=== PATIENT | male | born 1960 | race Caucasian/White ===

== ENCOUNTER 2019-02-19 15:22 | Inpatient (IN) | payer MEDICARE, MEDICAID ==
[~2019-02-19] VITALS: Ht 160 cm; Wt 99.6 kg
[~2019-02-19 15:22] MED LIST: ACET500C13 PO; ALLP100T PO; CEPH500C PO; CLOT30SO TP; DOXY100C42 PO; MUPI15CR10 TOP; SIMV20TA3 PO; SULF1TAB38 PO
--- NOTE | 2019-02-19 15:50 | NUR ---
Pt voided approximately 200ml in hat in bathroom.
[2019-02-19 15:53] LABS: BILIRUBIN,URINE NEGATIVE (NEGATIVE); CLARITY,URINE VERY CLOUDY; COLOR,URINE YELLOW; GLUCOSE, URINE (UA) NEGATIVE (NEGATIVE); KETONES,URINE NEGATIVE (NEGATIVE); LEUKOCYTE ESTERASE ,URINE 3+ (NEGATIVE); NITRITE,URINE POSITIVE (NEGATIVE); PH,URINE 6 (5-9); PROTEIN,URINE 1+ (NEGATIVE)
[2019-02-19] MEDS ORDERED: ALPRAZolam 0.25 MG (XANAX) TAB PO ONE (16:00)
--- NOTE | 2019-02-19 16:00 | ED General ---
General Chief Complaint: - Urinary Stated Complaint: HAD U/S DONE, BILAT HYDRONEPHROSIS Nursing Triage Note: had renal US done on saturday at [place], results were called to caregivers today stating that pt has Bilateral hydronephrosis, BRENDA, and urinary retention, and was advised by ordering physician to get to ED immediately Nursing Sepsis Screen: No Definite Risk Source of Information: Patient, Caregiver Exam Limitations: Other (Down syndrome) History of Present Illness Date Seen by Provider: Feb 19, 2019 Time Seen by Provider: 15:40 Initial Comments This 58-year-old gentleman with Down syndrome presents to the emergency room accompanied by his caregivers from [employer] [facility]. they were directed to the emergency room by his event specialist product demonstrator, Dr. Danielson from [facility] in [place]. He apparently has been struggling with urinary retention, incontinence, he has been seeing Dr. Danielson and had a workup done on Saturday which included renal ultrasound. Renal ultrasound apparently reported bilateral hydronephrosis. This report was called to patient's care providers and they were instructed to bring him to the emergency room for further evaluation and possible placement of a catheter. Patient denies any pain. Care provider state he has struggled to some degree with incontinence over the last 18 months but it has been progressively worse over the past 6 months. They now frequently have to do clothing changes sometimes 5 or 6 times a day. Allergies and Home Medications Allergies Coded Allergies: No Known Drug Allergies (Unverified , 02/05/12) Home Medications Acetaminophen 500 Mg Capsule, 500-1,000 MG PO Q6H PRN for PAIN OR FEVER, (Reported) PRN PAIN OR FEVER Allopurinol 100 Mg Tab, 100 MG PO BID, (Reported) Cephalexin Monohydrate 500 Mg Capsule, 1 EACH PO TID Prescribed by: ROCIO CAVAZOS on 10/02/13 1231 Clotrimazole 10 Ml Solution, 1 SPR TP TID PRN for ATHLETE'S FEET, (Reported) PRN (ATHLETE'S FEET) Doxycycline Monohydrate 100 Mg Capsule, 100 MG PO BID Prescribed by: ROCIO CAVAZOS on 10/02/13 1231 Mupirocin Calcium 15 Gm Cream..g., 1 APPLIC TOP BID Prescribed by: ROCIO CAVAZOS on 10/02/13 1231 Simvastatin 20 Mg Tablet, 20 MG PO HS, (Reported) Patient Home Medication List Home Medication List Reviewed: Yes Review of Systems Review of Systems Constitutional: no symptoms reported EENTM: no symptoms reported Respiratory: no symptoms reported Cardiovascular: no symptoms reported Gastrointestinal: no symptoms reported Genitourinary: see HPI Musculoskeletal: no symptoms reported Skin: no symptoms reported Psychiatric/Neurological: No Symptoms Reported Hematologic/Lymphatic: No Symptoms Reported Immunological/Allergic: no symptoms reported Past Jydwtdc-Uogbil-Lmdhjw Hx Past Med/Social Hx: Reviewed Nursing Past Med/Soc Hx Patient Social History Alcohol Use: Denies Use Recreational Drug Use: No 2nd Hand Smoke Exposure: No Recent Foreign Travel: No Contact w/Someone Who Travel: No Recent Infectious Disease Expo: No Recent Hopitalizations: No Immunizations Up To Date Tetanus Booster (TDap): Unknown Date of Pneumonia Vaccine: May 06, 2008 Seasonal Allergies Seasonal Allergies: No Past Medical History Surgeries: Yes (POSSIBLY HAD A HEART SX A CHILD FOR [employer]) Respiratory: No Cardiac: Yes (POSSIBLE DEFICIT THAT WAS FIXED) Neurological: Yes (Down Syndrome) Gastrointestinal: No Musculoskeletal: Yes Gout Endocrine: No HEENT: No Cancer: No Did You Recieve Any Treatments: No Psychosocial: No Integumentary: No Blood Disorders: No Physical Exam Vital Signs Vital Signs - First Documented 02/19/19 02/19/19 02/19/19 15:42 17:27 18:05 Temp 36.4 Pulse 68 Resp 18 B/P (MAP) 150/82 (104) Pulse Ox 97 O2 Delivery Simple Mask O2 Flow Rate 5.00 Capillary Refill : Less Than 3 Seconds Height, Weight, BMI Height: 5'5" Weight: 225lbs. oz. 102.843597os; 40.00 BMI Method:Estimated General Appearance: No Apparent Distress, WD/WN, Obese HEENT: PERRL/EOMI, Normal ENT Inspection Neck: Normal Inspection Respiratory: Lungs Clear, Normal Breath Sounds, No Accessory Muscle Use, No Respiratory Distress Cardiovascular: Regular Rate, Rhythm, No Edema Gastrointestinal: Normal Bowel Sounds, Non Tender, Soft; No Distended Extremity: Normal Inspection, No Pedal Edema Neurologic/Psychiatric: Alert, Oriented x3, No Motor/Sensory Deficits, Normal Mood/Affect, wood mechanist II-XII Norm as Tested Skin: Normal Color, Warm/Dry Procedures/Interventions Procedure: Conscious sedation for placement of Urban catheter Patient Education: Explained Benefits, Explained Risks, Pt. Ack. Understanding (Patient's guardian consented) Agreement on procedure with pt: Yes Breath Sounds per Auscultation: Clear Heart Sounds per Auscultation: Regular Airway Exam: Mouth opens >2 fingers, Neck Full Range of Motion See nursing documentation Progress/Results/Core Measures Suspected Sepsis Recent Fever Within 48 Hours: No Infection Criteria Present: None New/Unexplained Altered Menta: No Sepsis Screen: No Definite Risk SIRS Temperature: Pulse: 68 Respiratory Rate: 18 Laboratory Tests 02/19/19 16:35: White Blood Count 8.0 Blood Pressure 150 /82 Mean: 104 Laboratory Tests 02/19/19 16:35: Creatinine 2.45H, Platelet Count 274 Results/Orders Lab Results Laboratory Tests Test 02/19/19 15:46 02/19/19 16:35 Range/Units Urine Color YELLOW Urine Clarity VERY CLOUDY H Urine pH 6 5-9 Urine Specific Mclean 1.010 L 1.016-1.022 Urine Protein 1+ H NEGATIVE Urine Glucose (UA) NEGATIVE NEGATIVE Urine Ketones NEGATIVE NEGATIVE Urine Nitrite POSITIVE H NEGATIVE Urine Bilirubin NEGATIVE NEGATIVE Urine Urobilinogen NORMAL NORMAL MG/DL Urine Leukocyte Esterase 3+ H NEGATIVE Urine RBC (Auto) 2+ H NEGATIVE Urine RBC 10-25 H /HPF Urine WBC TNTC H /HPF Urine Crystals NONE /LPF Urine Bacteria LARGE H /HPF Urine Casts NONE /LPF Urine Mucus NEGATIVE /LPF Urine Culture Indicated YES White Blood Count 8.0 4.3-11.0 10^3/uL Red Blood Count 4.06 L 4.35-5.85 10^6/uL Hemoglobin 12.6 L 13.3-17.7 G/DL Hematocrit 40 40-54 % Mean Corpuscular Volume 98 80-99 FL Mean Corpuscular Hemoglobin 31 25-34 PG Mean Corpuscular Hemoglobin Concent 32 32-36 G/DL Red Cell Distribution Width 16.0 H 10.0-14.5 % Platelet Count 274 130-400 10^3/uL Mean Platelet Volume 9.3 7.4-10.4 FL Neutrophils (%) (Auto) 59 42-75 % Lymphocytes (%) (Auto) 26 12-44 % Monocytes (%) (Auto) 13 H 0-12 % Eosinophils (%) (Auto) 2 0-10 % Basophils (%) (Auto) 1 0-10 % Neutrophils # (Auto) 4.7 1.8-7.8 X 10^3 Lymphocytes # (Auto) 2.1 1.0-4.0 X 10^3 Monocytes # (Auto) 1.0 0.0-1.0 X 10^3 Eosinophils # (Auto) 0.1 0.0-0.3 10^3/uL Basophils # (Auto) 0.1 0.0-0.1 10^3/uL Sodium Level 138 135-145 MMOL/L Potassium Level 4.8 3.6-5.0 MMOL/L Chloride Level 107 98-107 MMOL/L Carbon Dioxide Level 22 21-32 MMOL/L Anion Gap 9 5-14 MMOL/L Blood Urea Nitrogen 41 H 7-18 MG/DL Creatinine 2.45 H 0.60-1.30 MG/DL Estimat Glomerular Filtration Rate 27 BUN/Creatinine Ratio 17 Glucose Level 104 70-105 MG/DL Calcium Level 8.4 L 8.5-10.1 MG/DL My Orders Orders - SUNSHINE MITCHELL MD Ed Iv/Invasive Line Start (02/19/19 15:50) Alprazolam Tablet (Xanax Tablet) (02/19/19 16:00) Ceftriaxone For Iv Use (Rocephin For I (02/19/19 16:15) Lidocaine 2% (Urojet) (Xylocaine Urojet) (02/19/19 16:15) Midazolam Injection (Versed Injection) (02/19/19 16:45) Fentanyl Injection (Sublimaze Injection (02/19/19 16:45) Medications Given in ED Current Medications Medications Dose Ordered Sig/Casey Route Start Time Stop Time Status Last Admin Dose Admin Alprazolam 0.5 mg ONCE ONCE PO 02/19/19 16:00 02/19/19 16:01 DC 02/19/19 15:56 0.5 MG Ceftriaxone Sodium 1000 mg/ Sterile Water 10 ml @ 200 mls/hr ONCE ONCE IV 02/19/19 16:15 02/19/19 16:17 DC 02/19/19 17:56 200 MLS/HR Lidocaine HCl 10 ml ONCE ONCE TOP 02/19/19 16:15 02/19/19 16:16 DC 02/19/19 17:16 10 ML Vital Signs/I&O 10/17/19 10/17/19 10/17/19 15:42 17:27 18:05 Temp 36.4 36.4 Pulse 68 59 Resp 18 18 B/P (MAP) 150/82 (104) 114/68 (104) Pulse Ox 97 O2 Delivery Simple Mask Room Air O2 Flow Rate 5.00 5.00 Capillary Refill : Less Than 3 Seconds Blood Pressure Mean: 104 Progress Note #1: Time: 16:00 Progress Note Patient voided approximately 200 mL of cloudy and foul-smelling urine. Postvoid bladder scan showed 500+ mL of retained urine. The plan at this time is to provide some mild sedation with Xanax 0.[address] an IV and a Urban catheter. Progress Note #2: Time: 16:16 Progress Note Patient has a significant urinary tract infection based on urinalysis. Rocephin 1 g IV has been added to the orders. Progress Note #3: Time: 16:23 Progress Note I spoke with Dr. Danielson's nursing staff. Patient reportedly had a bladder volume of 1300 mL with a post void residual of 700 at his visit on February 17. He had severe bilateral hydronephrosis. His staff is faxing the labs and ultrasound report along with the most recent office note to the ER. Progress Note #4: Time: 18:29 Progress Note Paperwork from the nephrology office was never received. Patient's creatinine was 2.45. This is an increase from 2.3 from old lab work performed in January. Urban catheter was placed under conscious sedation with Versed 2 mg and fentanyl 50 g. Urojet was also used. Patient tolerated the procedure well. Nearly 1000 mL of urine output was obtained. Patient is receiving Rocephin for treatment of urinary tract infection. Case was discussed with Dr. Dang who would like to patient admitted for observation overnight. Case was also discussed with Dr. Monahan who recommended starting Flomax and Urecholine. See admission orders. Patient's brother who is a coguardian with patient's mother was present and signed consent for the conscious sedation. We discussed CODE STATUS. For now he would like him to remain a full code until he can discuss more with family. Departure Communication (Admissions) Time/Spoke to Admitting Phy: 17:30 Dr. Dang Time/Spoke to Consulting Phy: 17:40 Dr. Monahan Impression Primary Impression: Urinary obstruction Additional Impressions: Urinary tract infection Qualified Codes: N39.0 - Urinary tract infection, site not specified Down syndrome Disposition: ADMITTED INPATIENT Condition: Improved Admissions Decision to Admit Reason: Admit from ER (General) Decision to Admit/Date: Feb 19, 2019 Time/Decision to Admit Time: 17:30 Departure-Patient Inst. Referrals: NATY DANG DO (PCP/Family) Primary Care Physician Copy Copies To 1: NATY DANG DO Copies To 2: DANIELA MONAHAN MD, JOSHUA T MD Feb 19, 2019 16:00
[2019-02-19 16:03] LABS: BACTERIA,URINE LARGE /HPF; WBC,URINE TNTC /HPF
[2019-02-19] MEDS ORDERED: LIDOCAINE UROJET 2% GEL 10 ML PKG TOP ONE (16:15)
[2019-02-19] MEDS ORDERED: cefTRIAXone FOR IV USE 1,000 MG in WATER (STERILE) FOR INJECTION 10 ML IV ONE (16:15)
[2019-02-19 16:42] LABS: BASOPHILS # (AUTO) 0.1 10^3/uL (0.0-0.1); BASOPHILS % (AUTO) 1 % (0-10); EOSINOPHILS # (AUTO) 0.1 10^3/uL (0.0-0.3); EOSINOPHILS % (AUTO) 2 % (0-10); HEMATOCRIT 40 % (40-54); HEMOGLOBIN 12.6 G/DL (13.3-17.7); LYMPHOCYTES # (AUTO) 2.1 X 10^3 (1.0-4.0); LYMPHOCYTES % (AUTO) 26 % (12-44); MEAN CORPUSCULAR HEMOGLOBIN 31 PG (25-34); MEAN CORPUSCULAR HGB CONC 32 G/DL (32-36); MEAN CORPUSCULAR VOLUME 98 FL (80-99); MEAN PLATELET VOLUME 9.3 FL (7.4-10.4); MONOCYTES % (AUTO) 13 % (0-12); NEUTROPHILS # (AUTO) 4.7 X 10^3 (1.8-7.8); NEUTROPHILS % (AUTO) 59 % (42-75); PLATELET COUNT 274 10^3/uL (130-400)
[2019-02-19] MEDS ORDERED: fentaNYL INJECTION 100 MCG/2 ML AMP IVP ONE (16:45)
[2019-02-19] MEDS ORDERED: MIDAZOLAM 2 MG/2 ML (VERSED) VIAL IVP ONE (16:45)
[2019-02-19 17:00] LABS: CALCIUM 8.4 MG/DL (8.5-10.1); CREATININE SERUM 2.45 MG/DL (0.60-1.30); POTASSIUM 4.8 MMOL/L (3.6-5.0)
--- NOTE | 2019-02-19 17:46 | NUR ---
900 ml urine drained from bender bag at this time
--- NOTE | 2019-02-19 18:10 | NUR ---
This nurse, Dr. Hyman, med student, Romelia and Glenna from [facility], 2 caseworkers and pt's brother present at time of conscious sedation. 1708 pt placed on 2 L nc by [facility] 1708 versed 1mg administered 1712 fentanyl 50mcg 1716 urojet administered by med student 1715 pt placed on mask with 5 L nc 1717 versed 1 mg administered 1719 pt sleeping 1722 16 fr bender inserted by med student 1728 procedure complete 1744 pt awake and sitting up in bed
--- NOTE | 2019-02-19 18:20 | NUR ---
DELLA RODRIGUEZ admitted to room 411-1, with an admitting diagnosis of URINARY TRACT INFECTION AND URINARY OBSTRUCTION, on 02/19/19 from ED via BED, accompanied by ED STAFF AND FAMILY. DELLA RODRIGUEZ introduced to surroundings, call light, bed controls, phone, TV, temperature control, lights, meal times, smoking policy, visitor policy, side rail policy, bathrooms and showers. Patient Rights given to patient in the handbook. DELLA RODRIGUEZ verbalizes understanding that [facility] is not responsible for the loss or damage to any personal effects or valuables that are kept in the patients possession during their hospitalization. The following Patient Care Plans were discussed with the PATIENT'S FAMILY AND CARE WORKERS: Discharge Planning, URINARY RETENTION, URINARY TRACT INFECTION and KNOWLEDGE DEFICIT. DELLA RODRIGUEZ verbalizes understanding of Interdisciplinary Patient Education. Patient and/or family were informed about the Rapid Response Team and its purpose.
[2019-02-19 18:26] VITALS: BP 133/81
[2019-02-19] MEDS ORDERED: ONDANSETRON 4 MG/2 ML (SDV) Z0FRAN IV PRN (19:00)
[2019-02-19] MEDS ORDERED: CATHETER FLUSH 10 ML SYR IV PRN (19:00)
[2019-02-19] MEDS: BETHANECHOL 10 MG (URECHOLINE) TAB PO SCH (20:06)
[2019-02-19] MEDS: NS IV 1000 ML 1,000 ML IV SCH (20:06)
[2019-02-19] MEDS: TAMSULOSIN 0.4 MG (FLOMAX) CAP PO SCH (20:06)
[2019-02-19 20:33] VITALS: BP 162/78
[2019-02-19] MEDS: ALPRAZolam 0.25 MG (XANAX) TAB PO PRN (21:38)
[2019-02-19] MEDS: LORazepam INJ 2 MG/ML (ATIVAN) VIAL IV PRN (22:46)
[2019-02-19 23:12] VITALS: BP 144/76
[2019-02-20 04:08] VITALS: BP 124/71
[2019-02-20 04:20] LABS: BASOPHILS # (AUTO) 0.1 10^3/uL (0.0-0.1); BASOPHILS % (AUTO) 1 % (0-10); EOSINOPHILS # (AUTO) 0.1 10^3/uL (0.0-0.3); EOSINOPHILS % (AUTO) 1 % (0-10); HEMATOCRIT 44 % (40-54); HEMOGLOBIN 14.2 G/DL (13.3-17.7); LYMPHOCYTES # (AUTO) 2.9 X 10^3 (1.0-4.0); LYMPHOCYTES % (AUTO) 22 % (12-44); MEAN CORPUSCULAR HEMOGLOBIN 32 PG (25-34); MEAN CORPUSCULAR HGB CONC 32 G/DL (32-36); MEAN CORPUSCULAR VOLUME 98 FL (80-99); MEAN PLATELET VOLUME 9.7 FL (7.4-10.4); MONOCYTES # (AUTO) 1.4 X 10^3 (0.0-1.0); MONOCYTES % (AUTO) 11 % (0-12); NEUTROPHILS # (AUTO) 8.7 X 10^3 (1.8-7.8); NEUTROPHILS % (AUTO) 66 % (42-75); PLATELET COUNT 294 10^3/uL (130-400); RED CELL DISTRIBUTION WIDTH 16.1 % (10.0-14.5); WHITE BLOOD COUNT 13.2 10^3/uL (4.3-11.0)
[2019-02-20 04:34] LABS: CALCIUM 9.2 MG/DL (8.5-10.1); CREATININE SERUM 2.55 MG/DL (0.60-1.30)
[2019-02-20] MEDS: NS IV 1000 ML 1,000 ML IV SCH ×2 (05:42→15:30)
[2019-02-20] MEDS: BETHANECHOL 10 MG (URECHOLINE) TAB PO SCH (06:47)
[2019-02-20 08:00] VITALS: BP_SYST 109; BP_SYST 116; BP_DIAS 59; BP_DIAS 66
--- NOTE | 2019-02-20 08:05 | History & Physical ---
History of Present Illness History of Present Illness Reason for visit/HPI Patient has Down syndrome's and MR. Patient has renal insufficiency. Renal specialist at [place]. Renal ultrasound showing urinary obstruction, bilateral hydronephrosis and urinary retention. Nursing Home Director was told to bring to the emergency room at [facility]. Urban catheter. Put in Date of Admission Feb 19, 2019 at 17:51 Time Seen by a Provider: 08:01 I consulted on this patient on 02/20/19 08:01 Attending Physician Chandra Dang DO Admitting Physician Chandra Dang DO Consult Allergies and Home Medications Allergies Coded Allergies: No Known Drug Allergies (Unverified , 02/05/12) Home Medications Acetaminophen 500 Mg Capsule, 500-1,000 MG PO Q6H PRN for PAIN OR FEVER, (Reported) PRN PAIN OR FEVER Allopurinol 100 Mg Tab, 100 MG PO BID, (Reported) Cephalexin Monohydrate 500 Mg Capsule, 1 EACH PO TID Prescribed by: ROCIO CAVAZOS on 10/02/13 1231 Clotrimazole 10 Ml Solution, 1 SPR TP TID PRN for ATHLETE'S FEET, (Reported) PRN (ATHLETE'S FEET) Doxycycline Monohydrate 100 Mg Capsule, 100 MG PO BID Prescribed by: ROCIO CAVAZOS on 10/02/13 1231 Mupirocin Calcium 15 Gm Cream..g., 1 APPLIC TOP BID Prescribed by: ROCIO CAVAZOS on 10/02/13 1231 Simvastatin 20 Mg Tablet, 20 MG PO HS, (Reported) Patient Home Medication List Home Medication List Reviewed: No Past Hovtsio-Mgljyx-Ddejyz Hx Past Med/Social Hx: Reviewed Nursing Past Med/Soc Hx Patient Social History Marrital Status: single Employed/Student: unemployed Alcohol Use: Denies Use Recreational Drug Use: No 2nd Hand Smoke Exposure: No Physical Abuse Screen: No Sexual Abuse: No Recent Foreign Travel: No Contact w/other who traveled: No Recent Hopitalizations: No Recent Infectious Disease Expo: No Immunizations Up To Date Tetanus Booster (TDap): Unknown Date of Pneumonia Vaccine: May 06, 2008 Date of Influenza Vaccine: Feb 03, 2019 Seasonal Allergies Seasonal Allergies: No Past Medical History Currently Using CPAP: No Currently Using BIPAP: No Musculoskeletal: Gout Did You Recieve Any Treatments: No History of Blood Disorders: No Family History Cardiovascular disease 19 FATHER Hypertension G8 BROTHER Neoplasm maternal grandmother (some kind of cancer) Review of Systems Constitutional: no symptoms reported EENTM: no symptoms reported Respiratory: no symptoms reported Cardiovascular: no symptoms reported Gastrointestinal: no symptoms reported Genitourinary: decreased output, hesitancy, incontinence Physical Exam Vital Signs Vital Signs - First Documented 02/19/19 02/19/19 02/19/19 15:42 17:27 18:05 Temp 36.4 Pulse 68 Resp 18 B/P (MAP) 150/82 (104) Pulse Ox 97 O2 Delivery Simple Mask O2 Flow Rate 5.00 Capillary Refill : Less Than 3 Seconds Height, Weight, BMI Height: 5'5" Weight: 225lbs. oz. 102.920886hc; 38.90 BMI Method:Estimated General Appearance: No Apparent Distress, WD/WN Eyes: Bilateral Eye Normal Inspection HEENT: Normal ENT Inspection Neck: Normal Inspection, Non Tender Respiratory: Lungs Clear, No Accessory Muscle Use, No Respiratory Distress Cardiovascular: Regular Rate, Rhythm Gastrointestinal: Non Tender Assessment/Plan Assessment and Plan Urinary obstruction. Renal insufficiency. Bilateral hydronephrosis. UTI. Down syndrome's. MR Admission Diagnosis Admission Status: Observation Clinical Quality Measures DVT/VTE Risk/Contraindication: Risk Factor Score Per Nursin RFS Level Per Nursing on Admit: 2=Moderate CHANDRA DANG DO Feb 20, 2019 08:04
[2019-02-20] MEDS ORDERED: ACET-168 PO (08:54)
[2019-02-20] MEDS ORDERED: CLOT15CR6 TOP (08:54)
[2019-02-20] MEDS ORDERED: SIMV20TA3 PO (08:54)
--- NOTE | 2019-02-20 08:55 | NUR ---
UPDATED MED REC WITH MEDICATION LIST ON CHART FROM [facility]
[2019-02-20] MEDS: HYDROcodone/APAP 5 MG/325 MG (LORTAB) TAB PO SCH ×3 (09:04→21:39)
[2019-02-20 09:17] LABS: BILIRUBIN,URINE NEGATIVE (NEGATIVE); CLARITY,URINE BLOODY; COLOR,URINE RED; GLUCOSE, URINE (UA) NEGATIVE (NEGATIVE); KETONES,URINE 1+ (NEGATIVE); LEUKOCYTE ESTERASE ,URINE NEGATIVE (NEGATIVE); NITRITE,URINE NEGATIVE (NEGATIVE); PH,URINE 8 (5-9); PROTEIN,URINE 4+ (NEGATIVE)
[2019-02-20 09:51] LABS: BACTERIA,URINE MODERATE /HPF; RBC,URINE TNTC /HPF; WBC,URINE >100 /HPF
[2019-02-20 12:00] VITALS: BP 132/87
--- NOTE | 2019-02-20 12:36 | CONSULTATION REPORT ---
DATE OF SERVICE: 02/20/2019 ATTENDING PRIMARY CARE PHYSICIAN: Chandra Archer DO SUMMARY: This is a 58-year-old man with Down syndrome who presented to the emergency room and urinary retention and see Dr. Danielson, the towboat pilot at [place]. A renal ultrasound revealed bilateral hydronephrosis, and enlarged bladder. He is having retention with overflow. There is no known drug allergies. On allopurinol and simvastatin. A poor historian, most of the information obtained from the records. Urban catheter was inserted in the emergency room with recovery of over a liter of urine. Positive urinalysis. Culture pending. Dr. Hyman talked to me and I told them to start him on Flomax 0.4 mg daily and Urecholine 10 mg q.i.d. before meals and at bedtime. He tolerated the Urecholine well with no side effect. IMPRESSION: Neurogenic bladder with retention, bilateral hydronephrosis and renal insufficiency. RECOMMENDATIONS: I expected the gross hematuria as a subsequent effect of draining a PEG bladder. We will just watch that and push fluids orally and IV vu. Continue IV antibiotics, daily labs, watch for postobstructive diuresis and electrolytes depletion, especially potassium and replace losses accordingly. I will increase his Urecholine today to 25 q.i.d. before meals and at bedtime. Later on may be by Saturday or so we will attempt trial of voiding. Thus patient usually did not recover from retention and end up having a suprapubic tube placed in, but we will exhaust all medical ways first. Plan was fully explained to the to the worker and the nursing staff. Job ID: [id number] DocumentID: [id number] Dictated Date: 02/20/2019 09:40:42 Freelance Graphic Designer Date: 02/20/2019 12:35:38 Dictated By: DANIELA MONAHAN MD
[2019-02-20] MEDS: BETHANECHOL 25 MG (URECHOLINE) TAB PO SCH ×3 (12:59→21:35)
[2019-02-20 15:33] VITALS: BP 145/85
[2019-02-20] MEDS: TAMSULOSIN 0.4 MG (FLOMAX) CAP PO SCH (17:48)
[2019-02-20] MEDS ORDERED: cefTRIAXone 1,000 MG/SWFI 10 ML IV PUSH IV SCH ×2 (18:00)
[2019-02-20 19:43] VITALS: BP 149/82
[2019-02-20 23:58] VITALS: BP 136/78
[2019-02-21] MEDS: ALPRAZolam 0.25 MG (XANAX) TAB PO PRN (01:15)
[2019-02-21] MEDS: NS IV 1000 ML 1,000 ML IV SCH (01:24)
--- NOTE | 2019-02-21 02:00 | NUR ---
at 0100 cath leaking, pt c/o need to pee and getting agitated, Xanax given and bender hand irrigated for 45 minutes. multiple small to medium clots removed. pt very upset and cussing and requesting to go home. Ativan given IV. bladder scan done and no urine in the bladder. pt stopped yelling about having to go pee and covered up his body.
[2019-02-21] MEDS: LORazepam INJ 2 MG/ML (ATIVAN) VIAL IV PRN (02:05)
[2019-02-21 04:50] VITALS: BP 132/83
[2019-02-21] MEDS: BETHANECHOL 25 MG (URECHOLINE) TAB PO SCH ×4 (06:00→20:36)
[2019-02-21 06:09] LABS: HEMOGLOBIN 13.2 G/DL (13.3-17.7); RED CELL DISTRIBUTION WIDTH 16.2 % (10.0-14.5); WHITE BLOOD COUNT 13.7 10^3/uL (4.3-11.0)
[2019-02-21 06:22] LABS: CALCIUM 8.7 MG/DL (8.5-10.1); CREATININE SERUM 3.03 MG/DL (0.60-1.30)
[2019-02-21] MEDS ORDERED: D5W 500 ML IV SOLUTION 500 ML IV ONE (07:15)
[2019-02-21 08:00] VITALS: BP 116/76
[2019-02-21] MEDS: HYDROcodone/APAP 5 MG/325 MG (LORTAB) TAB PO SCH ×3 (08:35→20:36)
[2019-02-21 14:00] VITALS: BP 174/72
--- NOTE | 2019-02-21 16:13 | Progress Note - Hospitalist ---
Subjective HPI/CC On Admission Date Seen by Provider: Feb 21, 2019 Time Seen by Provider: 09:20 urinary retention Subjective/Events-last exam He she is asleep but easily aroused. He denies any pain complaints. He is not conversant. Objective Exam Vital Signs Vital Signs Date Time Temp Pulse Resp B/P (MAP) Pulse Ox O2 Delivery O2 Flow Rate FiO2 02/21/19 14:00 36.6 82 22 174/72 (106) 94 Room Air 02/21/19 08:00 0.00 Capillary Refill : Less Than 3 SecondsLess Than 3 Seconds General Appearance: No Apparent Distress, WD/WN, Obese Respiratory: Chest Non Tender, Lungs Clear Cardiovascular: Regular Rate, Rhythm, No Edema, No Murmur Gastrointestinal: Normal Bowel Sounds, Non Tender, Soft Extremity: Normal Inspection, Non Tender, No Pedal Edema Neurologic/Psychiatric: Alert Skin: Normal Color, Warm/Dry Results/Procedures Lab Laboratory Tests 02/21/19 05:27 Patient resulted labs reviewed. Assessment/Plan Assessment and Plan Assess & Plan/Chief Complaint Urinary tract infection Urinary retention Acute kidney injury Continue ceftriaxone Urban in place Urology following creatinine increased today increase IV fluids Repeat BMP this afternoon Diagnosis/Problems Diagnosis/Problems (1) Urinary tract infection Status: Acute Qualifiers: Urinary tract infection type: site unspecified Hematuria presence: without hematuria Qualified Codes: N39.0 - Urinary tract infection, site not specified (2) Urinary obstruction Status: Acute (3) Acute kidney injury Status: Acute Clinical Quality Measures DVT/VTE Risk/Contraindication: Risk Factor Score Per Nursin RFS Level Per Nursing on Admit: 2=Moderate Contraindications-Pharm: Other *list below* PREETI KRUEGER MD Feb 21, 2019 16:13
[2019-02-21] MEDS ORDERED: ENOXAPARIN 40 MG/0.4 ML (LOVENOX) SYR SC SCH (16:15)
[2019-02-21] MEDS: D5 1/2 NS 1000 ML IV SOLUTION 1,000 ML IV SCH ×3 (16:38→23:44)
[2019-02-21] MEDS: cefTRIAXone FOR IV USE 2,000 MG in WATER (STERILE) FOR INJECTION 10 ML IV SCH (17:43)
[2019-02-21] MEDS: TAMSULOSIN 0.4 MG (FLOMAX) CAP PO SCH (17:44)
[2019-02-21 19:11] LABS: CALCIUM 8.2 MG/DL (8.5-10.1); POTASSIUM 5.2 MMOL/L (3.6-5.0)
[2019-02-21 19:45] LABS: CREATININE SERUM 3.64 MG/DL (0.60-1.30)
[2019-02-21 22:00] VITALS: BP 171/82
[2019-02-21] MEDS ORDERED: NS IV 1000 ML 1,000 ML IV SCH (22:00)
[2019-02-22] MEDS: D5 1/2 NS 1000 ML IV SOLUTION 1,000 ML IV SCH ×3 (02:43→20:00)
[2019-02-22] MEDS: ALPRAZolam 0.25 MG (XANAX) TAB PO PRN ×2 (04:36→21:13)
[2019-02-22] MEDS: BETHANECHOL 25 MG (URECHOLINE) TAB PO SCH ×4 (04:57→21:13)
[2019-02-22 05:35] VITALS: BP 166/71
[2019-02-22 06:30] LABS: BASOPHILS # (AUTO) 0.1 10^3/uL (0.0-0.1); BASOPHILS % (AUTO) 0 % (0-10); EOSINOPHILS # (AUTO) 0.3 10^3/uL (0.0-0.3); EOSINOPHILS % (AUTO) 3 % (0-10); HEMATOCRIT 35 % (40-54); HEMOGLOBIN 11.2 G/DL (13.3-17.7); LYMPHOCYTES % (AUTO) 17 % (12-44); MEAN CORPUSCULAR HEMOGLOBIN 32 PG (25-34); MEAN CORPUSCULAR HGB CONC 32 G/DL (32-36); MEAN CORPUSCULAR VOLUME 101 FL (80-99); MEAN PLATELET VOLUME 9.8 FL (7.4-10.4); MONOCYTES # (AUTO) 1.4 X 10^3 (0.0-1.0); MONOCYTES % (AUTO) 12 % (0-12); NEUTROPHILS # (AUTO) 7.9 X 10^3 (1.8-7.8); NEUTROPHILS % (AUTO) 68 % (42-75); PLATELET COUNT 214 10^3/uL (130-400); RED CELL DISTRIBUTION WIDTH 16.6 % (10.0-14.5); WHITE BLOOD COUNT 11.6 10^3/uL (4.3-11.0)
[2019-02-22 06:47] LABS: CALCIUM 7.8 MG/DL (8.5-10.1); CREATININE SERUM 4.06 MG/DL (0.60-1.30); POTASSIUM 4.9 MMOL/L (3.6-5.0)
[2019-02-22] MEDS: HYDROcodone/APAP 5 MG/325 MG (LORTAB) TAB PO SCH (08:44)
--- NOTE | 2019-02-22 13:01 | Progress Note - Hospitalist ---
Subjective HPI/CC On Admission Date Seen by Provider: Feb 22, 2019 Time Seen by Provider: 11:20 urinary retention Subjective/Events-last exam He is awake, but not cooperative today. He denies pain. He is asking for a cup on the counter, although he has a cup of water on his tray table. Objective Exam Vital Signs Vital Signs Date Time Temp Pulse Resp B/P (MAP) Pulse Ox O2 Delivery O2 Flow Rate FiO2 02/22/19 08:00 92 Room Air 0.00 02/22/19 05:35 37.1 80 20 166/71 (102) Capillary Refill : Less Than 3 SecondsNONE General Appearance: No Apparent Distress, WD/WN, Obese Respiratory: Lungs Clear, Normal Breath Sounds, No Respiratory Distress Cardiovascular: Regular Rate, Rhythm, No Edema, No Murmur Gastrointestinal: Normal Bowel Sounds, Non Tender, Soft Extremity: Normal Inspection, Non Tender, No Pedal Edema Neurologic/Psychiatric: Alert Skin: Normal Color, Warm/Dry Results/Procedures Lab Laboratory Tests 02/21/19 18:51 02/22/19 05:45 Patient resulted labs reviewed. Assessment/Plan Assessment and Plan Assess & Plan/Chief Complaint Urinary tract infection due to Escherichia coli Urinary retention Acute kidney injury Non-anion gap metabolic acidosis Urine culture revealed Escherichia coli sensitive to ceftriaxone Continue ceftriaxone Urban in place Urology following creatinine trending upward Continue IV fluids Begin sodium bicarbonate replacement May require transfer to a facility with nephrology capability Cognitive impairment Appears to be a baseline DVT prophylaxis: Heparin Diagnosis/Problems Diagnosis/Problems (1) Urinary tract infection Status: Acute Qualifiers: Urinary tract infection type: site unspecified Hematuria presence: without hematuria Qualified Codes: N39.0 - Urinary tract infection, site not specified (2) Urinary obstruction Status: Acute (3) Acute kidney injury Status: Acute (4) Down syndrome Status: Chronic Clinical Quality Measures DVT/VTE Risk/Contraindication: Risk Factor Score Per Nursin RFS Level Per Nursing on Admit: 2=Moderate Contraindications-Pharm: Other *list below* PREETI KRUEGER MD Feb 22, 2019 13:01
[2019-02-22 13:54] LABS: ALBUMIN 2.9 GM/DL (3.2-4.5); BILIRUBIN,DIRECT 0.2 MG/DL (0.0-0.3); BILIRUBIN,INDIRECT 0.1 MG/DL; BILIRUBIN,TOTAL 0.3 MG/DL (0.1-1.0)
[2019-02-22 14:09] VITALS: BP 128/81
[2019-02-22] MEDS: SODIUM BICARBONATE 650 MG TABLET (NON-FORMULARY) PO SCH (15:56)
[2019-02-22] MEDS: TAMSULOSIN 0.4 MG (FLOMAX) CAP PO SCH (17:17)
[2019-02-22] MEDS: cefTRIAXone FOR IV USE 2,000 MG in WATER (STERILE) FOR INJECTION 10 ML IV SCH (17:19)
[2019-02-22 21:34] VITALS: BP 119/68
--- NOTE | 2019-02-22 22:00 | NUR ---
2113-pt visitors (brother & other family) left-pt crying & yelling out-prn xanax 0.25 mg given 200-pt sitting in bed, watching tv, does not appear to be in any distress at this time.
[2019-02-23] MEDS: D5 1/2 NS 1000 ML IV SOLUTION 1,000 ML IV SCH ×2 (04:11→15:15)
[2019-02-23 06:10] LABS: BASOPHILS # (AUTO) 0.1 10^3/uL (0.0-0.1); BASOPHILS % (AUTO) 1 % (0-10); EOSINOPHILS # (AUTO) 0.3 10^3/uL (0.0-0.3); EOSINOPHILS % (AUTO) 3 % (0-10); HEMATOCRIT 34 % (40-54); LYMPHOCYTES # (AUTO) 2.2 X 10^3 (1.0-4.0); LYMPHOCYTES % (AUTO) 19 % (12-44); MEAN CORPUSCULAR HEMOGLOBIN 32 PG (25-34); MEAN CORPUSCULAR HGB CONC 32 G/DL (32-36); MEAN CORPUSCULAR VOLUME 101 FL (80-99); MEAN PLATELET VOLUME 9.6 FL (7.4-10.4); MONOCYTES # (AUTO) 1.4 X 10^3 (0.0-1.0); MONOCYTES % (AUTO) 12 % (0-12); NEUTROPHILS # (AUTO) 7.9 X 10^3 (1.8-7.8); NEUTROPHILS % (AUTO) 67 % (42-75); PLATELET COUNT 210 10^3/uL (130-400); RED CELL DISTRIBUTION WIDTH 16.2 % (10.0-14.5); WHITE BLOOD COUNT 11.9 10^3/uL (4.3-11.0)
[2019-02-23 06:22] VITALS: BP 142/66
[2019-02-23 06:27] LABS: CALCIUM 7.9 MG/DL (8.5-10.1); CREATININE SERUM 4.8 MG/DL (0.60-1.30)
[2019-02-23] MEDS: BETHANECHOL 25 MG (URECHOLINE) TAB PO SCH ×4 (06:33→20:39)
[2019-02-23] MEDS: SODIUM BICARBONATE 650 MG TABLET (NON-FORMULARY) PO SCH ×3 (06:33→17:31)
--- NOTE | 2019-02-23 07:50 | NUR ---
during the duration of this rn's shift-heparin injections administered by jessica nolan rn as pt would not allow this rn to do so, but allowed jessica to do so.
--- NOTE | 2019-02-23 08:14 | Progress Note ---
Subjective Time Seen by a Provider: 08:12 Subjective/Events-last exam UTI sensitive to Rocephin. Patient's kidney function slightly worse GFR 13. Urinary obstruction. Down syndrome Objective Exam Vital Signs Date Time Temp Pulse Resp B/P (MAP) Pulse Ox O2 Delivery O2 Flow Rate FiO2 02/23/19 06:22 36.9 84 20 142/66 (91) 94 Room Air 02/22/19 21:34 37.3 84 22 119/68 (85) 93 Room Air 02/22/19 20:00 Room Air 02/22/19 14:09 37.4 80 20 128/81 (97) 94 Room Air I & O 02/23/19 07:00 Intake Total 4260 ml Output Total 3375 ml Balance 885 ml Capillary Refill : Less Than 3 SecondsNONE General Appearance: No Apparent Distress, WD/WN HEENT: Normal ENT Inspection Neck: Full Range of Motion, Normal Inspection Respiratory: Lungs Clear, No Accessory Muscle Use, No Respiratory Distress, Decreased Breath Sounds Cardiovascular: Regular Rate, Rhythm, No Murmur Gastrointestinal: non tender, soft Results Lab Laboratory Tests 02/23/19 06:05 Laboratory Tests 02/22/19 09:30: Urine Protein 335H, Urine Osmolality 235L, Urine Random Total Protein 335H, Urine Random Sodium 42, Urine Creatinine 56, Urine Protein/Creatinine Ratio 5.98 02/23/19 06:05: White Blood Count 11.9H, Red Blood Count 3.40L, Hemoglobin 11.0L, Hematocrit 34L , Mean Corpuscular Volume 101H, Mean Corpuscular Hemoglobin 32, Mean Corpuscular Hemoglobin Concent 32, Red Cell Distribution Width 16.2H, Platelet Count 210, Mean Platelet Volume 9.6, Neutrophils (%) (Auto) 67, Lymphocytes (%) (Auto) 19, Monocytes (%) (Auto) 12, Eosinophils (%) (Auto) 3, Basophils (%) (Auto) 1, Neutrophils # (Auto) 7.9H, Lymphocytes # (Auto) 2.2, Monocytes # (Auto) 1.4H, Eosinophils # (Auto) 0.3, Basophils # (Auto) 0.1, Sodium Level 139, Potassium Level 5.0, Chloride Level 112H, Carbon Dioxide Level 17L, Anion Gap 10, Blood Urea Nitrogen 45H, Creatinine 4.80#H, Estimat Glomerular Filtration Rate 13, BUN/Creatinine Ratio 9, Glucose Level 130H, Calcium Level 7.9L Microbiology 02/19/19 Urine Culture - Final, Complete Escherichia coli Assessment/Plan Assessment/Plan Assess & Plan/Chief Complaint UTI. Acute renal failure. Urinary obstruction. Down syndrome. Clinical Quality Measures Admission Status Admission Dx Urinary obstruction. Renal insufficiency. Bilateral hydronephrosis. UTI. Down syndrome's. MR DVT/VTE Risk/Contraindication: Risk Factor Score Per Nursin RFS Level Per Nursing on Admit: 2=Moderate Contraindications-Pharm: Other *list below* NATY DANG DO Feb 23, 2019 08:14
--- NOTE | 2019-02-23 09:34 | Progress Note - Urology ---
Progress Note-Urology Progress Notes/Assess & Plan Progress/Assessment & Plan LOOKING GOOD. URINE CLEAR. US SHOWS BILATERAL HYDRO. UNABLE TO VISUALIZE URETERS. WE WILL ORDER NON CONTRAST CT A/P Final Diagnosis URINE RETENTION WITH HYDRONEPHROSIS AND RENAL FAILURE DANIELA MONAHAN MD Feb 23, 2019 09:34
--- NOTE | 2019-02-23 09:43 | Diagnostic Imaging Report ---
PROCEDURE: US Renal Bilateral. TECHNIQUE: Multiple Real-time grayscale images were obtained over the kidneys in various projections bilaterally. INDICATION: Urinary obstruction, urinary tract infections. FINDINGS: The right kidney measures 13.6 x 6.2 x 6.3 cm and the left kidney measures 13.9 x 7.2 x 5.9 cm. Both kidneys demonstrate severe hydronephrosis. No calculi are seen. The bladder is decompressed by a Urban catheter. IMPRESSION: Severe bilateral hydronephrosis, etiology indeterminate. Dictated by: Dictated on workstation # [id number]
--- NOTE | 2019-02-23 11:01 | Diagnostic Imaging Report ---
PROCEDURE: CT abdomen and pelvis without contrast. TECHNIQUE: Multiple contiguous axial images were obtained through the abdomen and pelvis without the use of intravenous contrast. Auto Exposure Controls were utilized during the CT exam to meet ALARA standards for radiation dose reduction. INDICATION: Urinary tract obstruction. Correlation is made with prior CT from 11/28/2015. FINDINGS: The lung bases are clear. The liver and gallbladder are unremarkable. No biliary ductal dilatation is seen. The pancreas and spleen are unremarkable. No adrenal mass is detected. Both kidneys demonstrate severe hydroureteronephrosis. Both dilated ureters are traced to the pelvis to the urinary bladder. Bladder is decompressed by Urban catheter. Bladder does show significant wall thickening. There is ana maria-cystic inflammatory stranding. Periureteral and perinephric inflammatory stranding is present as well. No definite calculi are seen. The prostate does not appear to be enlarged. Aorta is non-aneurysmal. Small and large bowel loops are normal caliber. There is no free fluid or fluid collection identified. IMPRESSION: Severe bilateral hydroureteronephrosis trace to the urinary bladder where there is significant wall thickening. Inflammatory stranding involving the genitourinary tract is noted and infection cannot be entirely excluded. No discrete obstructing lesion is seen. Dictated by: Dictated on workstation # [id number]
[2019-02-23] MEDS: HYDROcodone/APAP 5 MG/325 MG (LORTAB) TAB PO PRN (11:50)
[2019-02-23 12:00] VITALS: BP 100/59
--- NOTE | 2019-02-23 13:45 | NUR ---
Pastoral care visit, pt asleep sitter at bedside.
[2019-02-23] MEDS: TAMSULOSIN 0.4 MG (FLOMAX) CAP PO SCH (17:31)
[2019-02-23 18:11] VITALS: BP 170/74
[2019-02-23] MEDS: cefTRIAXone 2,000 MG/SWFI 20 ML IV PUSH IV SCH ×2 (18:16)
[2019-02-23 23:17] VITALS: BP 168/79
[2019-02-24] MEDS: HYDROcodone/APAP 5 MG/325 MG (LORTAB) TAB PO PRN ×3 (03:26→15:42)
[2019-02-24 04:00] VITALS: BP 141/78
[2019-02-24] MEDS: BETHANECHOL 25 MG (URECHOLINE) TAB PO SCH ×4 (05:36→20:03)
[2019-02-24] MEDS: SODIUM BICARBONATE 650 MG TABLET (NON-FORMULARY) PO SCH ×3 (05:38→15:41)
[2019-02-24 08:00] VITALS: BP 145/75
--- NOTE | 2019-02-24 08:02 | Progress Note ---
Subjective Time Seen by a Provider: 07:59 Subjective/Events-last exam As UTI due to Escherichia coli sensitive to Rocephin. Blood tests not done as of yet this morning. Patient ate well yesterday. Renal failure. Hydroureteronephrosis Objective Exam Vital Signs Date Time Temp Pulse Resp B/P (MAP) Pulse Ox O2 Delivery O2 Flow Rate FiO2 02/24/19 04:00 36.8 82 20 141/78 (99) 93 Room Air 02/23/19 23:17 36.7 74 21 168/79 (108) 94 Room Air 02/23/19 20:05 94 Room Air 02/23/19 18:11 36.1 74 22 170/74 (106) 93 Room Air 02/23/19 12:00 37.8 75 16 100/59 (73) 92 Room Air 02/23/19 08:00 Room Air I & O 02/24/19 07:00 Intake Total 4000 ml Output Total 3800 ml Balance 200 ml Capillary Refill : Less Than 3 SecondsNONE General Appearance: No Apparent Distress, WD/WN HEENT: Normal ENT Inspection Neck: Full Range of Motion Respiratory: Lungs Clear, No Accessory Muscle Use, No Respiratory Distress Cardiovascular: Regular Rate, Rhythm Gastrointestinal: non tender, soft Results Lab Microbiology 02/19/19 Urine Culture - Final, Complete Escherichia coli Assessment/Plan Assessment/Plan Assess & Plan/Chief Complaint UTI. Acute renal failure. Urinary obstruction. Down syndrome. . 02/24/19. UTI due to Escherichia coli sensitive to Rocephin. Urinary obstruction resolved with Urban catheter. Down syndrome. Renal failure Clinical Quality Measures Admission Status Admission Dx Urinary obstruction. Renal insufficiency. Bilateral hydronephrosis. UTI. Down syndrome's. MR DVT/VTE Risk/Contraindication: Risk Factor Score Per Nursin RFS Level Per Nursing on Admit: 2=Moderate Contraindications-Pharm: Other *list below* NATY DANG DO Feb 24, 2019 08:02
[2019-02-24] MEDS: D5 1/2 NS 1000 ML IV SOLUTION 1,000 ML IV SCH (08:14)
[2019-02-24] MEDS: ALPRAZolam 0.25 MG (XANAX) TAB PO PRN ×3 (08:14→20:03)
--- NOTE | 2019-02-24 09:45 | Progress Note - Urology ---
Progress Note-Urology Progress Notes/Assess & Plan Progress/Assessment & Plan CT REVIEWED. PLAN BILATERAL STENTS TOMORROW IF TECHNICALLY FEASIBLE, HOPE TO IMPROVE RENAL FUNCTIONS Final Diagnosis URINE RETENTION AND RENAL FAILURE WITH BILATERAL RENAL OBSTRUCTION DANIELA MONAHAN MD Feb 24, 2019 09:45
[2019-02-24 11:13] LABS: BILIRUBIN,URINE NEGATIVE (NEGATIVE); CLARITY,URINE VERY CLOUDY; COLOR,URINE RED; GLUCOSE, URINE (UA) NEGATIVE (NEGATIVE); KETONES,URINE NEGATIVE (NEGATIVE); LEUKOCYTE ESTERASE ,URINE 3+ (NEGATIVE); NITRITE,URINE POSITIVE (NEGATIVE); PH,URINE 6.5 (5-9); PROTEIN,URINE 4+ (NEGATIVE)
[2019-02-24 11:29] LABS: BACTERIA,URINE MODERATE /HPF; RBC,URINE TNTC /HPF; WBC,URINE >100 /HPF
[2019-02-24 12:40] VITALS: BP 134/83
[2019-02-24] MEDS: NS IV 1000 ML 1,000 ML IV SCH (13:33)
[2019-02-24] MEDS: cefTRIAXone 2,000 MG/SWFI 20 ML IV PUSH IV SCH ×2 (15:42)
[2019-02-24] MEDS: TAMSULOSIN 0.4 MG (FLOMAX) CAP PO SCH (15:42)
[2019-02-24 18:03] VITALS: BP 135/76
[2019-02-24] MEDS: LORazepam INJ 2 MG/ML (ATIVAN) VIAL IV PRN (23:16)
[2019-02-24 23:52] VITALS: BP 103/66
[2019-02-25] VITALS (10 sets, daily range): BP systolic 86–162; BP diastolic 51–78
[2019-02-25] MEDS: NS IV 1000 ML 1,000 ML IV SCH ×3 (03:56→17:51)
[2019-02-25] MEDS: BETHANECHOL 25 MG (URECHOLINE) TAB PO SCH ×3 (06:00→17:51)
[2019-02-25] MEDS: SODIUM BICARBONATE 650 MG TABLET (NON-FORMULARY) PO SCH ×3 (06:00→17:51)
--- NOTE | 2019-02-25 07:28 | Progress Note-Pre Operative ---
Pre-Operative Progress Note H&P Reviewed The H&P was reviewed, patient examined and no changes noted. Date Seen by Provider: Feb 25, 2019 Time Seen by Provider: 07: Date H&P Reviewed: Feb 25, 2019 Time H&P Reviewed: :28 Pre-Operative Diagnosis: BILATERAL URETERAL OBSTRUCTION, RENAL FAILURE, URINE RETENTION DANIELA MONAHAN MD Feb 25, 2019 07:28
[2019-02-25] MEDS ORDERED: LACTATED RINGERS 1,000 ML IV PRN (07:30)
[2019-02-25 07:52] LABS: BASOPHILS # (AUTO) 0.1 10^3/uL (0.0-0.1); BASOPHILS % (AUTO) 1 % (0-10); EOSINOPHILS # (AUTO) 0.4 10^3/uL (0.0-0.3); EOSINOPHILS % (AUTO) 4 % (0-10); HEMATOCRIT 32 % (40-54); HEMOGLOBIN 10.2 G/DL (13.3-17.7); LYMPHOCYTES # (AUTO) 1.8 X 10^3 (1.0-4.0); LYMPHOCYTES % (AUTO) 21 % (12-44); MEAN CORPUSCULAR HEMOGLOBIN 32 PG (25-34); MEAN CORPUSCULAR HGB CONC 32 G/DL (32-36); MEAN CORPUSCULAR VOLUME 99 FL (80-99); MEAN PLATELET VOLUME 9.7 FL (7.4-10.4); MONOCYTES # (AUTO) 1.2 X 10^3 (0.0-1.0); MONOCYTES % (AUTO) 14 % (0-12); NEUTROPHILS # (AUTO) 5.3 X 10^3 (1.8-7.8); NEUTROPHILS % (AUTO) 61 % (42-75); PLATELET COUNT 236 10^3/uL (130-400); WHITE BLOOD COUNT 8.7 10^3/uL (4.3-11.0)
[2019-02-25 08:09] LABS: CREATININE SERUM 5.98 MG/DL (0.60-1.30); POTASSIUM 5.7 MMOL/L (3.6-5.0)
--- NOTE | 2019-02-25 08:14 | Progress Note ---
Subjective Time Seen by a Provider: 08:13 Subjective/Events-last exam Past surgery by urologist today Placement of stents Objective Exam Vital Signs Date Time Temp Pulse Resp B/P (MAP) Pulse Ox O2 Delivery O2 Flow Rate FiO2 02/25/19 04:00 37.6 81 19 128/74 (92) 97 Nasal Cannula 1.00 02/24/19 23:52 37.4 85 18 103/66 (78) 93 Nasal Cannula 1.00 02/24/19 20:00 Room Air 02/24/19 18:03 37.3 74 20 135/76 (95) 94 Room Air 02/24/19 12:40 37.3 75 20 134/83 (100) 96 Room Air I & O 02/25/19 07:00 Intake Total 3040 ml Output Total 1225 ml Balance 1815 ml Capillary Refill : Less Than 3 SecondsNONE General Appearance: No Apparent Distress Results Lab Laboratory Tests 02/24/19 10:45: Urine Color REDH, Urine Clarity VERY CLOUDYH, Urine pH 6.5, Urine Specific [place] 1.010L, Urine Protein 4+, Urine Glucose (UA) NEGATIVE, Urine Ketones NEGATIVE, Urine Nitrite POSITIVEH, Urine Bilirubin NEGATIVE, Urine Urobilinogen NORMAL, Urine Leukocyte Esterase 3+H, Urine RBC (Auto) 5+H, Urine RBC TNTCH, Urine WBC >100H, Urine Crystals NONE, Urine Bacteria MODERATEH, Urine Casts NONE, Urine Mucus NEGATIVE, Urine Culture Indicated YES 02/25/19 07:45: White Blood Count 8.7, Red Blood Count 3.23L, Hemoglobin 10.2L, Hematocrit 32L, Mean Corpuscular Volume 99, Mean Corpuscular Hemoglobin 32, Mean Corpuscular Hemoglobin Concent 32, Red Cell Distribution Width 16.0H, Platelet Count 236, Mean Platelet Volume 9.7, Neutrophils (%) (Auto) 61, Lymphocytes (%) (Auto) 21, Monocytes (%) (Auto) 14H, Eosinophils (%) (Auto) 4, Basophils (%) (Auto) 1, Neutrophils # (Auto) 5.3, Lymphocytes # (Auto) 1.8, Monocytes # (Auto) 1.2H, Eosinophils # (Auto) 0.4H, Basophils # (Auto) 0.1, Sodium Level 138, Potassium Level 5.7H, Chloride Level 111H, Carbon Dioxide Level 19L, Anion Gap 8, Blood Urea Nitrogen 59H, Creatinine 5.98#H, Estimat Glomerular Filtration Rate 10, BUN/Creatinine Ratio 10, Glucose Level 107H, Calcium Level 8.0L Microbiology 02/19/19 Urine Culture - Final, Complete Escherichia coli Assessment/Plan Assessment/Plan Assess & Plan/Chief Complaint UTI. Acute renal failure. Urinary obstruction. Down syndrome. . 02/24/19. UTI due to Escherichia coli sensitive to Rocephin. Urinary obstruction resolved with Urban catheter. Down syndrome. Renal failure. . 02/25/19 urinary retention. Renal failure. Bilateral renal obstruction Clinical Quality Measures Admission Status Admission Dx Urinary obstruction. Renal insufficiency. Bilateral hydronephrosis. UTI. Down syndrome's. MR DVT/VTE Risk/Contraindication: Risk Factor Score Per Nursin RFS Level Per Nursing on Admit: 2=Moderate Contraindications-Pharm: Other *list below* NATY DANG DO Feb 25, 2019 08:14
[2019-02-25] MEDS ORDERED: proPOfol 200 MG/20 ML (DIPRIVAN) VIAL IV ONE (08:37)
[2019-02-25] MEDS ORDERED: SEVOFLURANE (ULTANE) 15 ML INHAL SOLN ONE ×3 (08:37→09:59)
[2019-02-25] MEDS ORDERED: ONDANSETRON 4 MG/2 ML (SDV) Z0FRAN ONE (08:37)
[2019-02-25] MEDS ORDERED: fentaNYL INJECTION 100 MCG/2 ML AMP ONE (08:37)
[2019-02-25] MEDS ORDERED: DEXAMETHASONE 10 MG/ML (DECADRON) 1 ML VIAL ONE (08:37)
[2019-02-25] MEDS ORDERED: LIDOCAINE PF 2% 5 ML (XYLOCAINE) VIAL ONE (08:37)
[2019-02-25] MEDS ORDERED: MIDAZOLAM 2 MG/2 ML (VERSED) VIAL ONE (08:40)
--- NOTE | 2019-02-25 09:07 | Progress Note-Post Operative ---
Post-Operative Progess Note Surgeon (s)/Cabin Service Agent (s) Surgeon DANIELA MONAHAN MD Cabin Service Agent: NONE Pre-Operative Diagnosis BILATERAL URETERAL OBSTRUCTION, RENAL FAILURE, URINE RETENTION Post-Operative Diagnosis SAME Procedure & Operative Findings Date of Procedure 02/25/19 Procedure Performed/Findings CYSTOSCOPY AND ATTEMPTED BILATERAL STENTS Anesthesia Type GENERAL Estimated Blood Loss Estimated blood loss (mL): NONE Specimens/Packing Specimens Removed NONE Packing: NONE DANIELA MONAHAN MD Feb 25, 2019 09:07
[2019-02-25] MEDS ORDERED: PHENYLEPHRINE 100 MCG/ML 10 ML (ANESTHESIA) SYR ONE (09:59)
[2019-02-25] MEDS ORDERED: ROCURONIUM 10 MG/ML 5 ML SYRINGE IV ONE (09:59)
[2019-02-25] MEDS: HYDROcodone/APAP 5 MG/325 MG (LORTAB) TAB PO PRN (12:36)
[2019-02-25] MEDS: ALPRAZolam 0.25 MG (XANAX) TAB PO PRN (12:36)
--- NOTE | 2019-02-25 12:43 | Progress Note ---
Subjective Time Seen by a Provider: 12:41 Subjective/Events-last exam The home health care social worker and Dr. Constantino. Patient to be started to [facility]. To send to clinical laboratory scientist. Patient needs to in his kidneys Objective Exam Vital Signs Date Time Temp Pulse Resp B/P (MAP) Pulse Ox O2 Delivery O2 Flow Rate FiO2 02/25/19 11:15 36.7 20 95/63 (74) 98 OxyMask 3 02/25/19 11:15 OxyMask 3 02/25/19 11:00 OxyMask 3 02/25/19 11:00 20 95/63 (74) 98 OxyMask 3 02/25/19 10:50 20 95/63 (74) 96 OxyMask 10 02/25/19 10:45 OxyMask 10 02/25/19 10:40 20 96/54 (68) 97 OxyMask 10 02/25/19 10:30 OxyMask 10 02/25/19 10:30 20 86/51 (63) 97 OxyMask 10 02/25/19 10:22 36.7 20 87/52 (64) 97 OxyMask 10 02/25/19 10:22 OxyMask 10 02/25/19 09:09 Nasal Cannula 1.00 02/25/19 04:00 37.6 81 19 128/74 (92) 97 Nasal Cannula 1.00 02/24/19 23:52 37.4 85 18 103/66 (78) 93 Nasal Cannula 1.00 02/24/19 20:00 Room Air 02/24/19 18:03 37.3 74 20 135/76 (95) 94 Room Air I & O 02/25/19 07:00 Intake Total 3040 ml Output Total 1225 ml Balance 1815 ml Capillary Refill : Less Than 3 SecondsNONE General Appearance: No Apparent Distress HEENT: Normal ENT Inspection Neck: Full Range of Motion, Normal Inspection Respiratory: No Accessory Muscle Use, No Respiratory Distress Cardiovascular: Regular Rate, Rhythm, No Murmur Results Lab Laboratory Tests 02/25/19 07:45: White Blood Count 8.7, Red Blood Count 3.23L, Hemoglobin 10.2L, Hematocrit 32L, Mean Corpuscular Volume 99, Mean Corpuscular Hemoglobin 32, Mean Corpuscular Hemoglobin Concent 32, Red Cell Distribution Width 16.0H, Platelet Count 236, Mean Platelet Volume 9.7, Neutrophils (%) (Auto) 61, Lymphocytes (%) (Auto) 21, Monocytes (%) (Auto) 14H, Eosinophils (%) (Auto) 4, Basophils (%) (Auto) 1, Neutrophils # (Auto) 5.3, Lymphocytes # (Auto) 1.8, Monocytes # (Auto) 1.2H, Eosinophils # (Auto) 0.4H, Basophils # (Auto) 0.1, Sodium Level 138, Potassium Level 5.7H, Chloride Level 111H, Carbon Dioxide Level 19L, Anion Gap 8, Blood Urea Nitrogen 59H, Creatinine 5.98#H, Estimat Glomerular Filtration Rate 10, BUN/Creatinine Ratio 10, Glucose Level 107H, Calcium Level 8.0L Microbiology 02/24/19 Urine Culture - Final, Complete NO GROWTH Assessment/Plan Assessment/Plan Assess & Plan/Chief Complaint UTI. Acute renal failure. Urinary obstruction. Down syndrome. . 02/24/19. UTI due to Escherichia coli sensitive to Rocephin. Urinary obstruction resolved with Urban catheter. Down syndrome. Renal failure. . 02/25/19 urinary retention. Renal failure. Bilateral renal obstruction. . Spoke to policy change clerk and urologist and to transfer patient today to [facility] under the care of a clinical laboratory scientist Clinical Quality Measures Admission Status Admission Dx Urinary obstruction. Renal insufficiency. Bilateral hydronephrosis. UTI. Down syndrome's. MR DVT/VTE Risk/Contraindication: Risk Factor Score Per Nursin RFS Level Per Nursing on Admit: 2=Moderate Contraindications-Pharm: Other *list below* NATY DANG DO Feb 25, 2019 12:43
[2019-02-25] MEDS: TAMSULOSIN 0.4 MG (FLOMAX) CAP PO SCH (17:51)
--- NOTE | 2019-02-25 18:22 | OPERATIVE REPORT ---
DATE OF SERVICE: 02/25/2019 PREOPERATIVE DIAGNOSES: Bilateral ureteral obstruction with renal failure, neurogenic bladder and retention. POSTOPERATIVE DIAGNOSES: Bilateral ureteral obstruction with renal failure, neurogenic bladder and retention. OPERATION PERFORMED: Cystoscopy and attempted bilateral stents. SURGEON: Jake Monahan MD ANESTHESIA: General. COMPLICATIONS: None. DESCRIPTION OF PROCEDURE: Under satisfactory general anesthesia, the patient in lithotomy position, genitalia were prepped and draped in the usual sterile fashion. A 23-Upper Sorbian cystoscope was introduced under vision. The anterior urethra was normal. The prostate was very small. The bladder neck was widely open. Bladder was entered and it revealed marked edema and thickening all over, especially the floor and the trigone. I was unable to visualize any ureteral orifice on either side. I tried to pass a stent in any possible ureteral orifice, but no luck. I discontinued further attempt and removed the cystoscope and inserted the Urban catheter. The patient tolerated the procedure and anesthesia well and was sent to recovery room in stable condition. PLAN: Transfer to a bigger institution where they have nephrology as well as radiologist that is able to put a percutaneous nephrostomy and maybe better, so I left antegrade nephroureteral stents on both sides to see if that will improve the function of the kidneys to decide on the next step. Job ID: [id number] DocumentID: [id number] Dictated Date: 02/25/2019 10:14:32 Quarry Supervisor Date: 02/25/2019 18:21:26 Dictated By: JAKE MONAHAN MD
--- NOTE | 2019-02-25 19:30 | NUR ---
report called to [facility] nursing staff. EMS notified of transfer..
--- NOTE | 2019-02-25 20:00 | NUR ---
EMS here. report given and pt left at 2015
--- NOTE | 2019-02-26 07:19 | Anesthesia-General Post-Op ---
General Patient Condition Mental Status/LOC: Same as Preop Cardiovascular: Satisfactory Nausea/Vomiting: Absent Respiratory: Satisfactory Pain: Controlled Complications: Absent Post Op Complications Complications None Follow Up Care/Instructions Patient Instructions None needed. Anesthesia/Patient Condition Patient Condition Patient is doing well, no complaints, stable vital signs, no apparent adverse anesthesia problems. No complications reported per nursing. MARLENE DOUGLAS CRNA Feb 26, 2019 07:19
--- NOTE | 2019-02-26 07:36 | Discharge Summary ---
Diagnosis/Chief Complaint Date of Admission Feb 20, 2019 at 14:30 Date of Discharge Feb 25, 2019 at 20:15 Discharge Time: 07:34 Discharge Diagnosis Renal failure. Hyperkalemia. UTI due to Escherichia coli. Urinary tract obstruction. Severe bilateral hydroureter ureter nephrosis. Down syndrome. MR. Rodriguez. Reason Hospital Visit Patient has Down syndrome's and Patient has renal insufficiency. Renal specialist at [place]. Renal ultrasound showing urinary obstruction, bilateral hydronephrosis and urinary retention. 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 Urban catheter. Put in Discharge Summary Procedures Cystoscopy Consultations Urology Discharge Physical Examination Allergies: Coded Allergies: No Known Drug Allergies (Unverified , 02/05/12) Vitals & I&Os Vital Signs Date Time Temp Pulse Resp B/P (MAP) Pulse Ox O2 Delivery O2 Flow Rate FiO2 02/25/19 15:47 36.6 68 20 162/73 (102) 94 Room Air 02/25/19 12:00 1.00 Hospital Course Patient transferred to [facility] under the care of the hospitalist Labs (last 24 hrs) Laboratory Tests 02/19/19 15:46: Urine Color YELLOW, Urine Clarity VERY CLOUDYH, Urine pH 6, Urine Specific [place] 1.010L, Urine Protein 1+H, Urine Glucose (UA) NEGATIVE, Urine Ketones NEGATIVE, Urine Nitrite POSITIVEH, Urine Bilirubin NEGATIVE, Urine Urobilinogen NORMAL, Urine Leukocyte Esterase 3+H, Urine RBC (Auto) 2+H, Urine RBC 10-25H, Urine WBC TNTCH, Urine Crystals NONE, Urine Bacteria LARGEH, Urine Casts NONE, Urine Mucus NEGATIVE, Urine Culture Indicated YES 02/19/19 16:35: White Blood Count 8.0, Red Blood Count 4.06L, Hemoglobin 12.6L, Hematocrit 40, Mean Corpuscular Volume 98, Mean Corpuscular Hemoglobin 31, Mean Corpuscular Hemoglobin Concent 32, Red Cell Distribution Width 16.0H, Platelet Count 274, Mean Platelet Volume 9.3, Neutrophils (%) (Auto) 59, Lymphocytes (%) (Auto) 26, Monocytes (%) (Auto) 13H, Eosinophils (%) (Auto) 2, Basophils (%) (Auto) 1, Neutrophils # (Auto) 4.7, Lymphocytes # (Auto) 2.1, Monocytes # (Auto) 1.0, Eosinophils # (Auto) 0.1, Basophils # (Auto) 0.1, Sodium Level 138, Potassium Level 4.8, Chloride Level 107, Carbon Dioxide Level 22, Anion Gap 9, Blood Urea Nitrogen 41H, Creatinine 2.45H, Estimat Glomerular Filtration Rate 27, BUN/Creatinine Ratio 17, Glucose Level 104, Calcium Level 8.4L 02/20/19 03:50: White Blood Count 13.2H, Red Blood Count 4.49, Hemoglobin 14.2, Hematocrit 44, Mean Corpuscular Volume 98, Mean Corpuscular Hemoglobin 32, Mean Corpuscular Hemoglobin Concent 32, Red Cell Distribution Width 16.1H, Platelet Count 294, Mean Platelet Volume 9.7, Neutrophils (%) (Auto) 66, Lymphocytes (%) (Auto) 22, Monocytes (%) (Auto) 11, Eosinophils (%) (Auto) 1, Basophils (%) (Auto) 1, Neutrophils # (Auto) 8.7H, Lymphocytes # (Auto) 2.9, Monocytes # (Auto) 1.4H, Eosinophils # (Auto) 0.1, Basophils # (Auto) 0.1, Sodium Level 141, Potassium Level 5.0, Chloride Level 109H, Carbon Dioxide Level 20L, Anion Gap 12, Blood Urea Nitrogen 38H, Creatinine 2.55H, Estimat Glomerular Filtration Rate 26, BUN/Creatinine Ratio 15, Glucose Level 118H, Calcium Level 9.2 02/20/19 09:04: Urine Color REDH, Urine Clarity BLOODYH, Urine pH 8, Urine Specific [place] 1.015L, Urine Protein 4+, Urine Glucose (UA) NEGATIVE, Urine Ketones 1+H, Urine Nitrite NEGATIVE, Urine Bilirubin NEGATIVE, Urine Urobilinogen NORMAL, Urine Leukocyte Esterase NEGATIVE, Urine RBC (Auto) 3+H, Urine RBC TNTCH, Urine WBC >100H, Urine Crystals NONE, Urine Bacteria MODERATEH, Urine Casts NONE, Urine Mucus NEGATIVE, Urine Culture Indicated CULTURE PENDING 02/20/19 11:13: Glucometer 102 02/20/19 15:21: Glucometer 109 02/20/19 20:27: Glucometer 128H 02/21/19 05:27: White Blood Count 13.7H, Red Blood Count 4.12L, Hemoglobin 13.2L, Hematocrit 41, Mean Corpuscular Volume 100H, Mean Corpuscular Hemoglobin 32, Mean Corpuscular Hemoglobin Concent 32, Red Cell Distribution Width 16.2H, Platelet Count 259, Mean Platelet Volume 10.0, Sodium Level 145, Potassium Level 5.0, Chloride Level 115H, Carbon Dioxide Level 19L, Anion Gap 11, Blood Urea Nitrogen 36H, Creatinine 3.03#H, Estimat Glomerular Filtration Rate 22, BUN/Creatinine Ratio 12, Glucose Level 125H, Calcium Level 8.7 02/21/19 05:28: Glucometer 121H 02/21/19 10:54: Glucometer 115H 02/21/19 18:51: Sodium Level 140, Potassium Level 5.2H, Chloride Level 111H, Carbon Dioxide Level 19L, Anion Gap 10, Blood Urea Nitrogen 40H, Creatinine 3.64#H, Estimat Glomerular Filtration Rate 17, BUN/Creatinine Ratio 11, Glucose Level 129H, Calcium Level 8.2L 02/22/19 05:45: Sodium Level 138, Potassium Level 4.9, Chloride Level 109H, Carbon Dioxide Level 17L, Anion Gap 12, Blood Urea Nitrogen 44H, Creatinine 4.06#H, Estimat Glomerular Filtration Rate 15, BUN/Creatinine Ratio 11, Glucose Level 167H, Calcium Level 7.8L, White Blood Count 11.6H, Red Blood Count 3.52L, Hemoglobin 11.2L, Hematocrit 35L, Mean Corpuscular Volume 101H, Mean Corpuscular Hemoglobin 32, Mean Corpuscular Hemoglobin Concent 32, Red Cell Distribution Width 16.6H, Platelet Count 214, Mean Platelet Volume 9.8, Neutrophils (%) (Auto) 68, Lymphocytes (%) (Auto) 17, Monocytes (%) (Auto) 12, Eosinophils (%) (Auto) 3, Basophils (%) (Auto) 0, Neutrophils # (Auto) 7.9H, Lymphocytes # (Auto) 2.0, Monocytes # (Auto) 1.4H, Eosinophils # (Auto) 0.3, Basophils # (Auto) 0.1, Total Bilirubin 0.3, Direct Bilirubin 0.2, Indirect Bilirubin 0.1, Aspartate Amino Transf (AST/SGOT) 31, Alanine Aminotransferase (ALT/SGPT) 29, Alkaline Phosphatase 176H, Total Protein 6.0L, Albumin 2.9L 02/22/19 09:30: Urine Protein 335H, Urine Osmolality 235L, Urine Random Total Protein 335H, Urine Random Sodium 42, Urine Creatinine 56, Urine Protein/Creatinine Ratio 5.98 02/23/19 06:05: White Blood Count 11.9H, Red Blood Count 3.40L, Hemoglobin 11.0L, Hematocrit 34L , Mean Corpuscular Volume 101H, Mean Corpuscular Hemoglobin 32, Mean Corpuscular Hemoglobin Concent 32, Red Cell Distribution Width 16.2H, Platelet Count 210, Mean Platelet Volume 9.6, Neutrophils (%) (Auto) 67, Lymphocytes (%) (Auto) 19, Monocytes (%) (Auto) 12, Eosinophils (%) (Auto) 3, Basophils (%) (Auto) 1, Neutrophils # (Auto) 7.9H, Lymphocytes # (Auto) 2.2, Monocytes # (Auto) 1.4H, Eosinophils # (Auto) 0.3, Basophils # (Auto) 0.1, Sodium Level 139, Potassium Level 5.0, Chloride Level 112H, Carbon Dioxide Level 17L, Anion Gap 10, Blood Urea Nitrogen 45H, Creatinine 4.80#H, Estimat Glomerular Filtration Rate 13, BUN/Creatinine Ratio 9, Glucose Level 130H, Calcium Level 7.9L 02/24/19 10:45: Urine Protein 4+, Urine Color REDH, Urine Clarity VERY CLOUDYH, Urine pH 6.5, Urine Specific [place] 1.010L, Urine Glucose (UA) NEGATIVE, Urine Ketones NEGATIVE, Urine Nitrite POSITIVEH, Urine Bilirubin NEGATIVE, Urine Urobilinogen NORMAL, Urine Leukocyte Esterase 3+H, Urine RBC (Auto) 5+H, Urine RBC TNTCH, Urine WBC >100H, Urine Crystals NONE, Urine Bacteria MODERATEH, Urine Casts NONE, Urine Mucus NEGATIVE, Urine Culture Indicated YES 02/25/19 07:45: White Blood Count 8.7, Red Blood Count 3.23L, Hemoglobin 10.2L, Hematocrit 32L, Mean Corpuscular Volume 99, Mean Corpuscular Hemoglobin 32, Mean Corpuscular Hemoglobin Concent 32, Red Cell Distribution Width 16.0H, Platelet Count 236, Mean Platelet Volume 9.7, Neutrophils (%) (Auto) 61, Lymphocytes (%) (Auto) 21, Monocytes (%) (Auto) 14H, Eosinophils (%) (Auto) 4, Basophils (%) (Auto) 1, Neutrophils # (Auto) 5.3, Lymphocytes # (Auto) 1.8, Monocytes # (Auto) 1.2H, Eosinophils # (Auto) 0.4H, Basophils # (Auto) 0.1, Sodium Level 138, Potassium Level 5.7H, Chloride Level 111H, Carbon Dioxide Level 19L, Anion Gap 8, Blood Urea Nitrogen 59H, Creatinine 5.98#H, Estimat Glomerular Filtration Rate 10, B UN/Creatinine Ratio 10, Glucose Level 107H, Calcium Level 8.0L Microbiology 02/24/19 Urine Culture - Final, Complete NO GROWTH Laboratory Tests 02/19/19 16:35 02/20/19 03:50 02/21/19 05:27 02/21/19 18:51 02/22/19 05:45 02/23/19 06:05 02/25/19 07:45 Pending Labs Microbiology Date/Time Source Procedure Growth Status 02/24/19 10:45 Urine Indwelling Cath (Sorting Supervisor) Urine Culture - Final NO GROWTH Complete 02/19/19 15:46 Urine Clean Catch Urine Culture - Final Escherichia coli Complete Laboratory Tests 02/19/19 15:46: Urine Color YELLOW, Urine Clarity VERY CLOUDY, Urine pH 6, Urine Specific [place] 1.010, Urine Protein 1+, Urine Glucose (UA) NEGATIVE, Urine Ketones NEGATIVE, Urine Nitrite POSITIVE, Urine Bilirubin NEGATIVE, Urine Urobilinogen NORMAL, Urine Leukocyte Esterase 3+, Urine RBC (Auto) 2+, Urine RBC 10-25, Urine WBC TNTC, Urine Crystals NONE, Urine Bacteria LARGE, Urine Casts NONE, Urine Mucus NEGATIVE, Urine Culture Indicated YES 02/19/19 16:35: White Blood Count 8.0, Red Blood Count 4.06, Hemoglobin 12.6, Hematocrit 40, Mean Corpuscular Volume 98, Mean Corpuscular Hemoglobin 31, Mean Corpuscular Hemoglobin Concent 32, Red Cell Distribution Width 16.0, Platelet Count 274, Mean Platelet Volume 9.3, Neutrophils (%) (Auto) 59, Lymphocytes (%) (Auto) 26, Monocytes (%) (Auto) 13, Eosinophils (%) (Auto) 2, Basophils (%) (Auto) 1, Neutrophils # (Auto) 4.7, Lymphocytes # (Auto) 2.1, Monocytes # (Auto) 1.0, Eosinophils # (Auto) 0.1, Basophils # (Auto) 0.1, Sodium Level 138, Potassium Level 4.8, Chloride Level 107, Carbon Dioxide Level 22, Anion Gap 9, Blood Urea Nitrogen 41, Creatinine 2.45, Estimat Glomerular Filtration Rate 27, BUN/Creatinine Ratio 17, Glucose Level 104, Calcium Level 8.4 02/20/19 03:50: White Blood Count 13.2, Red Blood Count 4.49, Hemoglobin 14.2, Hematocrit 44, Mean Corpuscular Volume 98, Mean Corpuscular Hemoglobin 32, Mean Corpuscular H emoglobin Concent 32, Red Cell Distribution Width 16.1, Platelet Count 294, Mean Platelet Volume 9.7, Neutrophils (%) (Auto) 66, Lymphocytes (%) (Auto) 22, Monocytes (%) (Auto) 11, Eosinophils (%) (Auto) 1, Basophils (%) (Auto) 1, Neutrophils # (Auto) 8.7, Lymphocytes # (Auto) 2.9, Monocytes # (Auto) 1.4, Eosinophils # (Auto) 0.1, Basophils # (Auto) 0.1, Sodium Level 141, Potassium Level 5.0, Chloride Level 109, Carbon Dioxide Level 20, Anion Gap 12, Blood Urea Nitrogen 38, Creatinine 2.55, Estimat Glomerular Filtration Rate 26, BUN/Creatinine Ratio 15, Glucose Level 118, Calcium Level 9.2 02/20/19 09:04: Urine Color RED, Urine Clarity BLOODY, Urine pH 8, Urine Specific [place] 1.015, Urine Protein 4+, Urine Glucose (UA) NEGATIVE, Urine Ketones 1+, Urine Nitrite NEGATIVE, Urine Bilirubin NEGATIVE, Urine Urobilinogen NORMAL, Urine Leukocyte Esterase NEGATIVE, Urine RBC (Auto) 3+, Urine RBC TNTC, Urine WBC >100, Urine Crystals NONE, Urine Bacteria MODERATE, Urine Casts NONE, Urine Mucus NEGATIVE, Urine Culture Indicated CULTURE PENDING 02/20/19 11:13: Glucometer 102 02/20/19 15:21: Glucometer 109 02/20/19 20:27: Glucometer 128 02/21/19 05:27: White Blood Count 13.7, Red Blood Count 4.12, Hemoglobin 13.2, Hematocrit 41, Mean Corpuscular Volume 100, Mean Corpuscular Hemoglobin 32, Mean Corpuscular Hemoglobin Concent 32, Red Cell Distribution Width 16.2, Platelet Count 259, M sonu Platelet Volume 10.0, Sodium Level 145, Potassium Level 5.0, Chloride Level 115, Carbon Dioxide Level 19, Anion Gap 11, Blood Urea Nitrogen 36, Creatinine 3.03, Estimat Glomerular Filtration Rate 22, BUN/Creatinine Ratio 12, Glucose Level 125, Calcium Level 8.7 02/21/19 05:28: Glucometer 121 02/21/19 10:54: Glucometer 115 02/21/19 18:51: Sodium Level 140, Potassium Level 5.2, Chloride Level 111, Carbon Dioxide Level 19, Anion Gap 10, Blood Urea Nitrogen 40, Creatinine 3.64, Estimat Glomerular Filtration Rate 17, BUN/Creatinine Ratio 11, Glucose Level 129, Calcium Level 8.2 02/22/19 05:45: Sodium Level 138, Potassium Level 4.9, Chloride Level 109, Carbon Dioxide Level 17, Anion Gap 12, Blood Urea Nitrogen 44, Creatinine 4.06, Estimat Glomerular Filtration Rate 15, BUN/Creatinine Ratio 11, Glucose Level 167, Calcium Level 7.8, White Blood Count 11.6, Red Blood Count 3.52, Hemoglobin 11.2, Hematocrit 35, Mean Corpuscular Volume 101, Mean Corpuscular Hemoglobin 32, Mean Corpuscular Hemoglobin Concent 32, Red Cell Distribution Width 16.6, Platelet Count 214, Mean Platelet Volume 9.8, Neutrophils (%) (Auto) 68, Lymphocytes (%) (Auto) 17, Monocytes (%) (Auto) 12, Eosinophils (%) (Auto) 3, Basophils (%) (Auto) 0, Neutrophils # (Auto) 7.9, Lymphocytes # (Auto) 2.0, Monocytes # (Auto) 1.4, Eosinophils # (Auto) 0.3, Basophils # (Auto) 0.1, Total Bilirubin 0.3, Direct Bilirubin 0.2, Indirect Bilirubin 0.1, Aspartate Amino Transf (AST/SGOT) 31, Alanine Aminotransferase (ALT/SGPT) 29, Alkaline Phosphatase 176, Total Protein 6.0, Albumin 2.9 02/22/19 09:30: Urine Protein 335, Urine Osmolality 235, Urine Random Total Protein 335, Urine Random Sodium 42, Urine Creatinine 56, Urine Protein/Creatinine Ratio 5.98 02/23/19 06:05: White Blood Count 11.9, Red Blood Count 3.40, Hemoglobin 11.0, Hematocrit 34, Mean Corpuscular Volume 101, Mean Corpuscular Hemoglobin 32, Mean Corpuscular Hemoglobin Concent 32, Red Cell Distribution Width 16.2, Platelet Count 210, Mean Platelet Volume 9.6, Neutrophils (%) (Auto) 67, Lymphocytes (%) (Auto) 19, Monocytes (%) (Auto) 12, Eosinophils (%) (Auto) 3, Basophils (%) (Auto) 1, Neutrophils # (Auto) 7.9, Lymphocytes # (Auto) 2.2, Monocytes # (Auto) 1.4, Eosinophils # (Auto) 0.3, Basophils # (Auto) 0.1, Sodium Level 139, Potassium Level 5.0, Chloride Level 112, Carbon Dioxide Level 17, Anion Gap 10, Blood Urea Nitrogen 45, Creatinine 4.80, Estimat Glomerular Filtration Rate 13, BUN/Creatinine Ratio 9, Glucose Level 130, Calcium Level 7.9 02/24/19 10:45: Urine Protein 4+, Urine Color RED, Urine Clarity VERY CLOUDY, Urine pH 6.5, Urine Specific [place] 1.010, Urine Glucose (UA) NEGATIVE, Urine Ketones NEGATIVE, Urine Nitrite POSITIVE, Urine Bilirubin NEGATIVE, Urine Urobilinogen NORMAL, Urine Leukocyte Esterase 3+, Urine RBC (Auto) 5+, Urine RBC TNTC, Urine WBC >100, Urine Crystals NONE, Urine Bacteria MODERATE, Urine Casts NONE, Urine Mucus NEGATIVE, Urine Culture Indicated YES 02/25/19 07:45: White Blood Count 8.7, Red Blood Count 3.23, Hemoglobin 10.2, Hematocrit 32, Mean Corpuscular Volume 99, Mean Corpuscular Hemoglobin 32, Mean Corpuscular Hemoglobin Concent 32, Red Cell Distribution Width 16.0, Platelet Count 236, Mean Platelet Volume 9.7, Neutrophils (%) (Auto) 61, Lymphocytes (%) (Auto) 21, Monocytes (%) (Auto) 14, Eosinophils (%) (Auto) 4, Basophils (%) (Auto) 1, Neutrophils # (Auto) 5.3, Lymphocytes # (Auto) 1.8, Monocytes # (Auto) 1.2, Eosi nophils # (Auto) 0.4, Basophils # (Auto) 0.1, Sodium Level 138, Potassium Level 5.7, Chloride Level 111, Carbon Dioxide Level 19, Anion Gap 8, Blood Urea Nitrogen 59, Creatinine 5.98, Estimat Glomerular Filtration Rate 10, BUN/Creatinine Ratio 10, Glucose Level 107, Calcium Level 8.0 Discharge Home Medications: Active Scripts Active Reported Clotrimazole-Betamethasone Crm (Clotrimazole/Betamethasone Dip) 15 Gm Cream..g. TOP TID PRN Simvastatin 20 Mg Tablet 20 Mg PO HS Acetaminophen Extra Strength (Acetaminophen) 500 Mg Tablet 500-1,000 Mg PO Q6H PRN Instructions to patient/family Please see electronic discharge instructions given to patient. Clinical Quality Measures DVT/VTE Risk/Contraindication: Risk Factor Score Per Nursin RFS Level Per Nursing on Admit: 2=Moderate Contraindications-Pharm: Other *list below* NATY DANG DO Feb 26, 2019 07:36
== END 2019-02-25 20:15 | disposition short-term general hospital (02) | DRG 671 ==
LOC: EDUNIT# 15:22 → ER 15:24 → 4TH 17:51 → OBSVTOIN 02-20 14:30
PROVIDERS: ADMIT Family Medicine; ATTEND Family Medicine
PROC: 0TJB8ZZ Inspection of Bladder, Via Natural or Artificial Opening Endoscopic (ICD-10-PCS; 2019-02-25)
PROC: 0T9 Urinary System, Drainage (ICD-10-PCS; principal; 2019-02-25 09:16)
DX: N13.6 Pyonephrosis (principal); N17.9 Acute kidney failure, unspecified; E87.2 Acidosis; B96.20 Unspecified Escherichia coli [E. coli] as the cause of diseases classified elsewhere; N31.9 Neuromuscular dysfunction of bladder, unspecified; R33.8 Other retention of urine; E66.9 Obesity, unspecified; Q90.2 Trisomy 21, translocation; F79 Unspecified intellectual disabilities; M10.9 Gout, unspecified; Z68.38 Body mass index [BMI] 38.0-38.9, adult; Z87.74 Personal history of (corrected) congenital malformations of heart and circulatory system
CPT/HCPCS: 36415; 74176; 76770; 80048; 80076; 81000; 82570; 82962; 83935; 84156; 84300; 85025; 85027; 87077; 87081; 87088; 87186; 96374; 96375; G0378

== ENCOUNTER 2019-03-13 23:44 | Emergency (ER) | payer MEDICARE, MEDICAID ==
[~2019-03-13] VITALS: Ht 160 cm; Wt 99.6 kg
[~2019-03-13 23:44] MED LIST changes: +ACET-168 PO; +CLOT15CR6 TOP
--- NOTE | 2019-03-14 00:13 | ED GU-Male ---
General Chief Complaint: Catheter/Drain/Tube Problems Stated Complaint: PULLED DRAIN TUBES OUT OF KIDNEYS Source: family (BROTHER), [facility] Exam Limitations: clinical condition (PT WITH SEVERE MR AND DOES NOT HAVE ANY SIGNIFICANT VERBAL SKILLS. ) History of Present Illness Date Seen by Provider: Mar 13, 2019 Time Seen by Provider: 23:50 Initial Comments PT ARRIVES FROM [facility], VIA THEIR TRANSPORTATION, WITH PT'S BROTHER WHO IS PT'S GUARDIAN PT HAS MR AND DOWN'S SYNDROME PT RECENTLY HAD BILATERAL NEPHROSTOMY TUBES PLACED AT [facility], AND PT PULLED BOTH OF THEM OUT TONIGHT AROUND 2029 PT HAS ONGOING BILATERAL URETERAL OBSTRUCTION WITH BILATERAL HYDRONEPHROSIS AND RENAL FAILURE WITH NEUROGENIC BLADDER--SEES DIRECTOR RISK, DR. GRACE AT [place] IN MORROW PT WAS ADMITTED HERE 02/20-02/25/19. HAD UTI AT THAT TIME, WELL WORSENING OF RENAL FAILURE AND URINARY RETENTION AND OVERFLOW INCONTINENCE. ATTEMPTS TO PLACE URETERAL STENTS WERE UNSUCCESSFUL BY DR. MONAHAN, SO PT WAS TRANSFERRED TO [place] ATTEMPTS TO PLACE STENTS AND NEPHROSTOMY TUBES WERE ALSO UNSUCCESSFUL AT [place], AND PT WAS THEN TRANSFERRED TO [facility], WHERE BILATERAL NEPHROSTOMY TUBES WERE PLACED. PT WAS THEN ADMITTED TO [facility]. BROTHER REPORTS THAT HIS INFECTION AND FEVER HAVE BEEN GONE, AND PT IS RECOVERED FROM THE INFECTION. PCP: DR. DANG Allergies and Home Medications Allergies Coded Allergies: No Known Drug Allergies (Unverified , 02/05/12) Home Medications Acetaminophen 500 Mg Tablet, 500-1,000 MG PO Q6H PRN for PAIN-MILD OR TEMPATURE, (Reported) Clotrimazole/Betamethasone Dip 15 Gm Cream..g., TOP TID PRN for IRRITATION, (Reported) Simvastatin 20 Mg Tablet, 20 MG PO HS, (Reported) Patient Home Medication List Home Medication List Reviewed: Yes Review of Systems Review of Systems Constitutional: other (UNABLE TO OBTAIN ANY INFORMATION FROM PT) Past Byjafrz-Dnimuj-Mwscmo Hx Patient Social History 2nd Hand Smoke Exposure: No Recent Foreign Travel: No Contact w/Someone Who Travel: No Recent Hopitalizations: No Immunizations Up To Date Tetanus Booster (TDap): Unknown Date of Pneumonia Vaccine: May 06, 2008 Date of Influenza Vaccine: Feb 03, 2019 Seasonal Allergies Seasonal Allergies: No Past Medical History Surgeries: Yes (POSSIBLY HAD A HEART SX A CHILD FOR [employer]; CYSTOSCOPIES WITH FAILED ATTEMPTS AT PLACEMENT OF URETERAL STENTS AND NOW HAS BILATERAL NEPHROSTOMY TUBES --02/2019 AT [facility]) Renal Respiratory: No Currently Using CPAP: No Currently Using BIPAP: No Cardiac: Yes (POSSIBLE DEFECT THAT WAS FIXED) Congenital Heart Disease Neurological: Yes (SEVERE MR AND DOWN'S SYNDROME) Developmental Disorder Genitourinary: Yes (NEUROGENIC BLADDER WITH BILATERAL HYDRONEPHROSIS AND RENAL FAILURE, AND OVERFLOW INCONTINENCE. DIRECTOR RISK IS DR. GRACE AT [place]. CYSTOSCOPIES AND FAILED ATTEMPTS AT URETERAL STENTS HERE AND [place]- 02/2019, AND EVENTUAL BILATERAL NEPHROSTOMY TUBES PLACED AT [facility] 02/2019; ) Bladder Infection, Renal Failure, Neurogenic Bladder Gastrointestinal: No Musculoskeletal: Yes Gout Endocrine: No HEENT: No Cancer: No Did You Recieve Any Treatments: No Psychosocial: No Integumentary: No Blood Disorders: No Family Medical History Cardiovascular disease 19 FATHER Hypertension G8 BROTHER Neoplasm maternal grandmother (some kind of cancer) Physical Exam Vital Signs Vital Signs - First Documented 03/13/19 23:50 Temp 36.9 Pulse 88 Resp 18 B/P (MAP) 108/66 (80) Pulse Ox 96 O2 Delivery Room Air Capillary Refill : Height, Weight, BMI Height: 5'5" Weight: 225lbs. oz. [id number]; 38.90 BMI Method:Estimated General Appearance: WD/WN, no apparent distress, other (ACTIVE, FAIRLY COOPERATIVE FOR EXAM) Cardiovascular: regular rate, rhythm Respiratory: normal breath sounds, no respiratory distress, no accessory muscle use Gastrointestinal: soft Back: other (BILATERAL NEPHROSTOMY TUBES STILL IN THE SKIN, BUT IS EVIDENT THAT THEY HAVE BEEN PULLED OUT A FEW CENTIMETERS, AND DRESSINGS ARE NOT INTACT. SMALL AMOUNT OF BLOOD FROM THE SITES, WELL BLOOD IN NEPHROSTOMY TUBING, WITHOUT ANY EVIDENCE OF NEW URINE IN TUBING) Neurologic/Psychiatric: no motor/sensory deficits, alert Skin: normal color, warm/dry Procedures/Interventions Patient Education: Explained Benefits, Explained Risks, Pt. Ack. Understanding Breath Sounds per Auscultation: Clear Heart Sounds per Auscultation: Regular Airway Exam: Mouth opens >2 fingers, Neck Full Range of Motion Progress/Results/Core Measures Suspected Sepsis SIRS Temperature: Pulse: Respiratory Rate: Laboratory Tests 03/14/19 00:06: White Blood Count 9.4 Blood Pressure / Mean: Laboratory Tests 03/14/19 00:06: Creatinine 2.12H, Platelet Count 481H, Total Bilirubin 0.2 Results/Orders Lab Results Laboratory Tests Test 03/14/19 00:05 03/14/19 00:06 Range/Units Urine Color YELLOW Urine Clarity CLEAR Urine pH 6.0 5-9 Urine Specific [place] 1.020 1.016-1.022 Urine Protein 2+ H NEGATIVE Urine Glucose (UA) NEGATIVE NEGATIVE Urine Ketones NEGATIVE NEGATIVE Urine Nitrite NEGATIVE NEGATIVE Urine Bilirubin NEGATIVE NEGATIVE Urine Urobilinogen 0.2 < = 1.0 MG/DL Urine Leukocyte Esterase 2+ H NEGATIVE Urine RBC (Auto) 3+ H NEGATIVE Urine RBC >100 H /HPF Urine WBC 25-50 H /HPF Urine Squamous Epithelial Cells 2-5 /HPF Urine Crystals NONE /LPF Urine Bacteria MODERATE H /HPF Urine Casts NONE /LPF Urine Mucus NEGATIVE /LPF Urine Culture Indicated YES White Blood Count 9.4 4.3-11.0 10^3/uL Red Blood Count 3.56 L 4.35-5.85 10^6/uL Hemoglobin 11.2 L 13.3-17.7 G/DL Hematocrit 36 L 40-54 % Mean Corpuscular Volume 100 H 80-99 FL Mean Corpuscular Hemoglobin 31 25-34 PG Mean Corpuscular Hemoglobin Concent 31 L 32-36 G/DL Red Cell Distribution Width 16.6 H 10.0-14.5 % Platelet Count 481 H 130-400 10^3/uL Mean Platelet Volume 9.8 7.4-10.4 FL Neutrophils (%) (Auto) 63 42-75 % Lymphocytes (%) (Auto) 22 12-44 % Monocytes (%) (Auto) 11 0-12 % Eosinophils (%) (Auto) 3 0-10 % Basophils (%) (Auto) 1 0-10 % Neutrophils # (Auto) 5.9 1.8-7.8 X 10^3 Lymphocytes # (Auto) 2.1 1.0-4.0 X 10^3 Monocytes # (Auto) 1.0 0.0-1.0 X 10^3 Eosinophils # (Auto) 0.3 0.0-0.3 10^3/uL Basophils # (Auto) 0.1 0.0-0.1 10^3/uL Sodium Level 140 135-145 MMOL/L Potassium Level 4.4 3.6-5.0 MMOL/L Chloride Level 106 98-107 MMOL/L Carbon Dioxide Level 22 21-32 MMOL/L Anion Gap 12 5-14 MMOL/L Blood Urea Nitrogen 59 H 7-18 MG/DL Creatinine 2.12 H 0.60-1.30 MG/DL Estimat Glomerular Filtration Rate 32 BUN/Creatinine Ratio 28 Glucose Level 113 H 70-105 MG/DL Calcium Level 9.1 8.5-10.1 MG/DL Corrected Calcium 9.3 8.5-10.1 MG/DL Total Bilirubin 0.2 0.1-1.0 MG/DL Aspartate Amino Transf (AST/SGOT) 23 5-34 U/L Alanine Aminotransferase (ALT/SGPT) 39 0-55 U/L Alkaline Phosphatase 218 H 40-136 U/L Total Protein 7.6 6.4-8.2 GM/DL Albumin 3.8 3.2-4.5 GM/DL My Orders Orders - CARIDAD ROWE DO Cbc With Automated Diff (03/14/19 00:03) Comprehensive Metabolic Panel (03/14/19 00:03) Ua Culture If Indicated (03/14/19 00:03) Ua Culture If Indicated (03/14/19 00:19) Urine Culture (03/14/19 00:05) Urine Culture (03/14/19 00:05) Vital Signs/I&O 03/13/19 03/14/19 23:50 01:39 Temp 36.9 36.8 Pulse 88 67 Resp 18 18 B/P (MAP) 108/66 (80) 108/80 (80) Pulse Ox 96 95 O2 Delivery Room Air Room Air Capillary Refill : Progress Note : Progress Note PT ADAMANTLY REFUSES TO GET ONTO CT TABLE Departure Communication (Admissions) [id number]--CALLED [facility] 0001--SPOKE WITH DR. CAROLEE JORDAN, UROLOGIST. HE ADVISES TO OBTAIN CT AND TRANSFER TO [facility]. 004--CALLED [facility], WILL CALL BACK. [phone]--DR. OLIVA, HOSPITALIST, HAS ACCEPTED PT FOR TRANSFER/ADMIT. PT TO GO BY POV. Impression Primary Impression: DISPLACEMENT OF BILATERAL NEPHROSTOMY TUBES Additional Impressions: Chronic renal failure NEUROGENIC BLADDER WITH BILATERAL HYDRONEPHROSIS SEVERE MR AND DOWN'S SYNDROME UTI (urinary tract infection) Disposition: 02 XFER SHT-TRM HOSP Condition: Stable Transfer Transfer Reason: Exceeds level of care Transfer Facility: [facility] Method of Transfer: Private Vehicle Departure-Patient Inst. Referrals: NATY DANG DO (PCP/Family) Primary Care Physician CARIDAD ROWE DO Mar 14, 2019 00:13 POS
[2019-03-14 00:22] LABS: BASOPHILS # (AUTO) 0.1 10^3/uL (0.0-0.1); BASOPHILS % (AUTO) 1 % (0-10); EOSINOPHILS # (AUTO) 0.3 10^3/uL (0.0-0.3); EOSINOPHILS % (AUTO) 3 % (0-10); HEMATOCRIT 36 % (40-54); HEMOGLOBIN 11.2 G/DL (13.3-17.7); LYMPHOCYTES # (AUTO) 2.1 X 10^3 (1.0-4.0); LYMPHOCYTES % (AUTO) 22 % (12-44); MEAN CORPUSCULAR HGB CONC 31 G/DL (32-36); MEAN CORPUSCULAR VOLUME 100 FL (80-99); MEAN PLATELET VOLUME 9.8 FL (7.4-10.4); MONOCYTES % (AUTO) 11 % (0-12); NEUTROPHILS # (AUTO) 5.9 X 10^3 (1.8-7.8); NEUTROPHILS % (AUTO) 63 % (42-75); PLATELET COUNT 481 10^3/uL (130-400); RED CELL DISTRIBUTION WIDTH 16.6 % (10.0-14.5); WHITE BLOOD COUNT 9.4 10^3/uL (4.3-11.0)
[2019-03-14 00:26] LABS: BILIRUBIN,URINE NEGATIVE (NEGATIVE); CLARITY,URINE CLEAR; COLOR,URINE YELLOW; GLUCOSE, URINE (UA) NEGATIVE (NEGATIVE); KETONES,URINE NEGATIVE (NEGATIVE); LEUKOCYTE ESTERASE ,URINE 1+ (NEGATIVE); NITRITE,URINE NEGATIVE (NEGATIVE); PROTEIN,URINE 2+ (NEGATIVE)
[2019-03-14 00:27] LABS: BILIRUBIN,URINE NEGATIVE (NEGATIVE); CLARITY,URINE CLEAR; COLOR,URINE YELLOW; GLUCOSE, URINE (UA) NEGATIVE (NEGATIVE); KETONES,URINE NEGATIVE (NEGATIVE); LEUKOCYTE ESTERASE ,URINE 2+ (NEGATIVE); NITRITE,URINE NEGATIVE (NEGATIVE); PROTEIN,URINE 2+ (NEGATIVE)
[2019-03-14 00:28] LABS: MEAN CORPUSCULAR HEMOGLOBIN 31 PG (25-34)
[2019-03-14 00:38] LABS: ALBUMIN 3.8 GM/DL (3.2-4.5); BILIRUBIN,TOTAL 0.2 MG/DL (0.1-1.0); CALCIUM 9.1 MG/DL (8.5-10.1); CREATININE SERUM 2.12 MG/DL (0.60-1.30); POTASSIUM 4.4 MMOL/L (3.6-5.0); TOTAL PROTEIN 7.6 GM/DL (6.4-8.2)
--- NOTE | 2019-03-14 00:40 | NUR ---
PT REFUSED CT OF ABDOMEN.
[2019-03-14 00:43] LABS: BACTERIA,URINE MODERATE /HPF; RBC,URINE >100 /HPF; SQUAMOUS EPITHELIAL CELL,UR 0-2 /HPF
[2019-03-14 00:44] LABS: BACTERIA,URINE MODERATE /HPF; RBC,URINE >100 /HPF; WBC,URINE 25-50 /HPF
[2019-03-14 01:39] VITALS: BP 108/80
== END 2019-03-14 01:40 | disposition short-term general hospital (02) ==
LOC: EDUNIT# 23:44 → ER 23:46
DX: T83.022A Displacement of nephrostomy catheter, initial encounter (principal); N18.9 Chronic kidney disease, unspecified; N31.9 Neuromuscular dysfunction of bladder, unspecified; N13.30 Unspecified hydronephrosis; Q90.9 Down syndrome, unspecified; F79 Unspecified intellectual disabilities; N39.0 Urinary tract infection, site not specified; M10.9 Gout, unspecified; Z82.49 Family history of ischemic heart disease and other diseases of the circulatory system
CPT/HCPCS: 36415; 80053; 81000; 85025; 87088

== ENCOUNTER 2019-03-20 10:12 | Emergency (ER) | payer MEDICARE, MEDICAID ==
[~2019-03-20] VITALS: Ht 165.1 cm; Wt 98.6 kg
--- NOTE | 2019-03-20 11:32 | ED GU-Male ---
General Stated Complaint: L NEPHROSTOMY TUBE REMOVED Source: skilled nursing records Exam Limitations: no limitations History of Present Illness Date Seen by Provider: Mar 20, 2019 Time Seen by Provider: 11:29 Initial Comments 58-year-old gentleman with severe MR and Down syndrome presents to ER from [facility] with reports of left nephrostomy tube displacement. He has bilateral ureteral obstruction with bilateral hydronephrosis and renal failure with neurogenic bladder. Sees Dr. Chase chief marketing officer at [facility] in [place]. He had nephrostomy tubes attempted to be placed at [facility] that was unsuccessful he was then transferred to [facility] and had successful bilateral nephrostomy tube placed at the end of February. He was here last week because he pulled both of them out. Today the skilled nursing notes that the left nephrostomy tube stitches have been pulled out, the tube has been withdrawn by about 1 inch. They're unable to get any drainage from the left nephrostomy tube. Timing/Duration: constant Severity/Quality: moderate Location: unknown Radiation: none Activities at Onset: none Prior Genitourinary Problems: none Allergies and Home Medications Allergies Coded Allergies: No Known Drug Allergies (Unverified , 02/05/12) Home Medications Acetaminophen 500 Mg Tablet, 500-1,000 MG PO Q6H PRN for PAIN-MILD OR TEMPATURE, (Reported) Clotrimazole/Betamethasone Dip 15 Gm Cream..g., TOP TID PRN for IRRITATION, (Reported) Simvastatin 20 Mg Tablet, 20 MG PO HS, (Reported) Patient Home Medication List Home Medication List Reviewed: Yes Review of Systems Review of Systems Constitutional: see HPI EENTM: see HPI Respiratory: no symptoms reported Cardiovascular: no symptoms reported Genitourinary: see HPI Musculoskeletal: no symptoms reported Skin: no symptoms reported Psychiatric/Neurological: No Symptoms Reported Endocrine: No Symptoms Reported Hematologic/Lymphatic: No Symptoms Reported Past Jjfxala-Fuztfj-Nyexoi Hx Patient Social History 2nd Hand Smoke Exposure: Yes Recent Hopitalizations: No Immunizations Up To Date Tetanus Booster (TDap): Unknown Date of Pneumonia Vaccine: May 06, 2008 Date of Influenza Vaccine: Feb 03, 2019 Seasonal Allergies Seasonal Allergies: No Past Medical History Surgeries: Yes Renal Respiratory: No Currently Using CPAP: No Currently Using BIPAP: No Cardiac: Yes (POSSIBLE DEFECT THAT WAS FIXED) Congenital Heart Disease Neurological: Yes (SEVERE MR AND DOWN'S SYNDROME) Developmental Disorder Genitourinary: Yes Bladder Infection, Renal Failure, Neurogenic Bladder Gastrointestinal: No Chronic Constipation Musculoskeletal: Yes Gout Endocrine: No HEENT: No Cancer: No Did You Recieve Any Treatments: No Psychosocial: No Integumentary: No Blood Disorders: No Family Medical History Cardiovascular disease 19 FATHER Hypertension G8 BROTHER Neoplasm maternal grandmother (some kind of cancer) Physical Exam Vital Signs Vital Signs - First Documented 03/20/19 11:30 Temp 36.7 Pulse 70 Resp 20 B/P (MAP) 136/77 (96) Pulse Ox 98 Capillary Refill : Height, Weight, BMI Height: 5'5" Weight: 225lbs. oz. 102.241473lv; 38.00 BMI Method:Estimated General Appearance: WD/WN, no apparent distress, obese, other (initially uncooperative and resistant to most care, after some talking and coaxing he agrees to do things like remove his coat, stand up and transfer to the bed and allow blood pressure to be taken. No intelligible speech) HEENT: PERRL/EOMI, normal ENT inspection Neck: non-tender, full range of motion Cardiovascular: regular rate, rhythm, no murmur Respiratory: no respiratory distress, no accessory muscle use Gastrointestinal: normal bowel sounds, non tender Neurologic/Psychiatric: alert, normal mood/affect Skin: normal color, warm/dry, other (right nephrostomy tube remains in place, left nephrostomy tube appears in place, the sutures that have been typed of the tube or pulled away from the skin by about 1 inch) Progress/Results/Core Measures Suspected Sepsis SIRS Temperature: Pulse: Respiratory Rate: Laboratory Tests 03/20/19 11:37: White Blood Count 7.1 Blood Pressure / Mean: Laboratory Tests 03/20/19 11:37: Creatinine 1.88H, Platelet Count 300, Total Bilirubin 0.5 Results/Orders Lab Results Laboratory Tests Test 03/20/19 11:37 03/20/19 14:36 Range/Units White Blood Count 7.1 4.3-11.0 10^3/uL Red Blood Count 3.66 L 4.35-5.85 10^6/uL Hemoglobin 11.4 L 13.3-17.7 G/DL Hematocrit 37 L 40-54 % Mean Corpuscular Volume 100 H 80-99 FL Mean Corpuscular Hemoglobin 31 25-34 PG Mean Corpuscular Hemoglobin Concent 31 L 32-36 G/DL Red Cell Distribution Width 16.3 H 10.0-14.5 % Platelet Count 300 130-400 10^3/uL Mean Platelet Volume 9.5 7.4-10.4 FL Neutrophils (%) (Auto) 58 42-75 % Lymphocytes (%) (Auto) 27 12-44 % Monocytes (%) (Auto) 11 0-12 % Eosinophils (%) (Auto) 3 0-10 % Basophils (%) (Auto) 1 0-10 % Neutrophils # (Auto) 4.1 1.8-7.8 X 10^3 Lymphocytes # (Auto) 1.9 1.0-4.0 X 10^3 Monocytes # (Auto) 0.8 0.0-1.0 X 10^3 Eosinophils # (Auto) 0.2 0.0-0.3 10^3/uL Basophils # (Auto) 0.1 0.0-0.1 10^3/uL Sodium Level 141 135-145 MMOL/L Potassium Level 4.4 3.6-5.0 MMOL/L Chloride Level 105 98-107 MMOL/L Carbon Dioxide Level 23 21-32 MMOL/L Anion Gap 13 5-14 MMOL/L Blood Urea Nitrogen 32 H 7-18 MG/DL Creatinine 1.88 H 0.60-1.30 MG/DL Estimat Glomerular Filtration Rate 37 BUN/Creatinine Ratio 17 Glucose Level 96 70-105 MG/DL Calcium Level 9.2 8.5-10.1 MG/DL Corrected Calcium 9.4 8.5-10.1 MG/DL Total Bilirubin 0.5 0.1-1.0 MG/DL Aspartate Amino Transf (AST/SGOT) 28 5-34 U/L Alanine Aminotransferase (ALT/SGPT) 31 0-55 U/L Alkaline Phosphatase 364 H 40-136 U/L Total Protein 7.2 6.4-8.2 GM/DL Albumin 3.7 3.2-4.5 GM/DL Urine Color YELLOW Urine Clarity CLEAR Urine pH 5.5 5-9 Urine Specific [place] 1.020 1.016-1.022 Urine Protein 2+ H NEGATIVE Urine Glucose (UA) NEGATIVE NEGATIVE Urine Ketones NEGATIVE NEGATIVE Urine Nitrite NEGATIVE NEGATIVE Urine Bilirubin NEGATIVE NEGATIVE Urine Urobilinogen 0.2 < = 1.0 MG/DL Urine Leukocyte Esterase 2+ H NEGATIVE Urine RBC (Auto) 3+ H NEGATIVE Urine RBC >100 H /HPF Urine WBC 50-100 H /HPF Urine Squamous Epithelial Cells RARE /HPF Urine Crystals NONE /LPF Urine Bacteria FEW H /HPF Urine Casts NONE /LPF Urine Mucus NEGATIVE /LPF Urine Yeast MODERATE H /HPF Urine Culture Indicated YES My Orders Orders - RIANNA KEY [employer] Cbc With Automated Diff (03/20/19 11:15) Comprehensive Metabolic Panel (03/20/19 11:15) Ct Abd/Pelvis Wo(Kidney Stone) (03/20/19 11:28) Alprazolam Tablet (Xanax Tablet) (03/20/19 11:45) General/Regular (03/20/19 Lunch) Levofloxacin Tablet (Levaquin Tablet) (03/20/19 15:30) Alprazolam Tablet (Xanax Tablet) (03/20/19 16:00) Medications Given in ED Current Medications Medications Dose Ordered Sig/Casey Route Start Time Stop Time Status Last Admin Dose Admin Alprazolam 0.25 mg ONCE ONCE PO 03/20/19 16:00 03/20/19 16:01 DC 03/20/19 16:02 0.25 MG Levofloxacin 750 mg ONCE ONCE PO 03/20/19 15:30 03/20/19 15:31 DC 03/20/19 15:55 750 MG Vital Signs/I&O 03/20/19 11:30 Temp 36.7 Pulse 70 Resp 20 B/P (MAP) 136/77 (96) Pulse Ox 98 Capillary Refill : Departure Communication (Admissions) He initially refused to get on the CT table, we gave him 0.5 mg of Xanax then bribed him with some Sprite and he ultimately agreed. Staff worker left, we gave him another 0.25 mg of Xanax to help him remain calm. When he found out he was being transferred to [place] he became upset again and so 0.5 mg of lorazepam ordered. Impression Primary Impression: left nephrostomy tube displacement Disposition: XFER SHT-TRM HOSP Condition: Stable Transfer Transfer Reason: Exceeds level of care Time Spoke to Accepting Phy: 15:[address] Schaffer hospitalist has accepted patient. We do not have interventional radiology here they can place these nephrostomy tubes. Transfer Time: 15:40 Method of Transfer: Private Vehicle Departure-Patient Inst. Referrals: NATY DANG DO (PCP/Family) Primary Care Physician RIANNA KEY APRN Mar 20, 2019 11:32 POS
[2019-03-20] MEDS ORDERED: ALPRAZolam 0.5 MG (XANAX) TAB PO SCH (11:45)
[2019-03-20 11:48] LABS: BASOPHILS # (AUTO) 0.1 10^3/uL (0.0-0.1); BASOPHILS % (AUTO) 1 % (0-10); EOSINOPHILS # (AUTO) 0.2 10^3/uL (0.0-0.3); EOSINOPHILS % (AUTO) 3 % (0-10); HEMATOCRIT 37 % (40-54); HEMOGLOBIN 11.4 G/DL (13.3-17.7); LYMPHOCYTES # (AUTO) 1.9 X 10^3 (1.0-4.0); LYMPHOCYTES % (AUTO) 27 % (12-44); MEAN CORPUSCULAR HEMOGLOBIN 31 PG (25-34); MEAN CORPUSCULAR HGB CONC 31 G/DL (32-36); MEAN CORPUSCULAR VOLUME 100 FL (80-99); MEAN PLATELET VOLUME 9.5 FL (7.4-10.4); MONOCYTES # (AUTO) 0.8 X 10^3 (0.0-1.0); MONOCYTES % (AUTO) 11 % (0-12); NEUTROPHILS # (AUTO) 4.1 X 10^3 (1.8-7.8); NEUTROPHILS % (AUTO) 58 % (42-75); PLATELET COUNT 300 10^3/uL (130-400); RED CELL DISTRIBUTION WIDTH 16.3 % (10.0-14.5); WHITE BLOOD COUNT 7.1 10^3/uL (4.3-11.0)
--- NOTE | 2019-03-20 12:00 | NUR ---
VERBAL ORDER TO NOT COLLECT URINE FROM THIS PATIENT AT THIS TIME D/T PATIENT CONDITION
[2019-03-20 12:08] LABS: ALBUMIN 3.7 GM/DL (3.2-4.5); BILIRUBIN,TOTAL 0.5 MG/DL (0.1-1.0); CALCIUM 9.2 MG/DL (8.5-10.1); CREATININE SERUM 1.88 MG/DL (0.60-1.30); POTASSIUM 4.4 MMOL/L (3.6-5.0); TOTAL PROTEIN 7.2 GM/DL (6.4-8.2)
--- NOTE | 2019-03-20 12:30 | NUR ---
IN ROOM TO ASSESS PATIENT, CAREGIVER AT BEDSIDE, BOTH DENY NEEDS AT THIS TIME. CALL LIGHT IN REACH, MONITORING MAINTAINED.
--- NOTE | 2019-03-20 13:15 | NUR ---
IN ROOM TO ASSESS PATIENT, CAREGIVER AT BEDSIDE, BOTH DENY NEEDS AT THIS TIME. CALL LIGHT IN REACH, MONITORING MAINTAINED. MEAL TRAY PROVIDED TO PATIENT .
--- NOTE | 2019-03-20 13:27 | Diagnostic Imaging Report ---
PROCEDURE: CT urinary tract, rule out kidney stone. TECHNIQUE: Multiple contiguous axial images were obtained through the abdomen and pelvis without the use of intravenous contrast. Auto Exposure Controls were utilized during the CT exam to meet ALARA standards for radiation dose reduction. INDICATION: Nephrostomy tube check. COMPARISON: 02/23/2019 FINDINGS: There are groundglass opacities in the lung bases which appear stable since the prior study. There is no pericardial effusion. The liver appears normal. The spleen is unremarkable. The pancreas appears normal. The adrenal glands are unremarkable. The right kidney demonstrates a nephrostomy tube in expected position with no hydronephrosis seen. No renal calculi are seen. The left kidney demonstrates marked hydronephrosis with hydroureter. The nephrostomy tube has been retracted to the renal cortex. The bowel loops are nondistended without obstruction. No free fluid or free air is seen. No acute osseous abnormality is seen. There are severe degenerative changes in the lumbar spine with bilateral L5 pars defects and grade 1 anterolisthesis at L5-S1. IMPRESSION: 1. Displacement of the left nephrostomy tube into the renal cortex with marked left hydronephrosis. 2. Stable right nephrostomy tube with no hydronephrosis. Dictated by: Dictated on workstation # [id number]
--- NOTE | 2019-03-20 14:36 | NUR ---
IN ROOM TO COLLECT URINE FROM PATIENT, CAREGIVER AT BEDSIDE, CALL LIGHT IN REACH, MONITORING MAINTAINED.
[2019-03-20 14:44] LABS: BILIRUBIN,URINE NEGATIVE (NEGATIVE); CLARITY,URINE CLEAR; COLOR,URINE YELLOW; GLUCOSE, URINE (UA) NEGATIVE (NEGATIVE); KETONES,URINE NEGATIVE (NEGATIVE); LEUKOCYTE ESTERASE ,URINE 2+ (NEGATIVE); NITRITE,URINE NEGATIVE (NEGATIVE); PH,URINE 5.5 (5-9); PROTEIN,URINE 2+ (NEGATIVE)
[2019-03-20 14:52] LABS: BACTERIA,URINE FEW /HPF; RBC,URINE >100 /HPF; SQUAMOUS EPITHELIAL CELL,UR RARE /HPF; WBC,URINE 50-100 /HPF; YEAST,URINE MODERATE /HPF
[2019-03-20] MEDS ORDERED: LEVOFLOXACIN 750 MG TAB (LEVAQUIN) PO ONE (15:30)
--- NOTE | 2019-03-20 15:30 | NUR ---
PATIENT IS RESTING QUIETLY IN BED, CAREGIVER REMAINS AT BEDSIDE, NEEDS DENIED.
[2019-03-20] MEDS ORDERED: ALPRAZolam 0.25 MG (XANAX) TAB PO ONE (16:00)
--- NOTE | 2019-03-20 16:00 | NUR ---
PATIENT CAREGIVER STATES SHE NEEDS TO LEAVE AT THIS TIME. NUMBER GIVEN TO THIS RN FOR CONTACT AT [facility] FOR FURTHER NEEDS. [phone] PATIENTS WHEELCHAIR IS LABELED WITH A WRISTBAND AND A STICKER APPLIED TO [employer] FOR IDENTIFICATION. CARE WORKER STATES SHE WILL CONTACT [facility] TO COME AND RETRIVE PATIENTS WHEEL CHAIR.
--- NOTE | 2019-03-20 16:45 | NUR ---
CALL MADE TO CHARLI GOVEA TO CHECK AND SEE IF WE HAD A ROOM YET FOR THIS PATIENT. WAS TOLD NO ROOM ASSIGNMENT OF YET AND THAT THEY WILL CALL WHEN ROOM IS ASSIGNED. REPORTED TO RIANNA KEY APRN
--- NOTE | 2019-03-20 17:07 | NUR ---
DINNER TRAY ORDERED FOR PATIENT.
--- NOTE | 2019-03-20 17:15 | NUR ---
MEAL SET UP FOR PATIENT, CLL LIGHT IN REACH. FREQUENT MONITORING MAINTAINED
--- NOTE | 2019-03-20 17:37 | NUR ---
REPORT GIVEN TO ERIK RN AT [facility] FOR ROOM NUMBER [id number] BED 2. [facility] CONTACTED FOR PATIENT TRANFER BY RIANNA KEY APRN
[2019-03-20] MEDS ORDERED: LORazepam INJ 2 MG/ML (ATIVAN) VIAL IVP PRN (17:45)
[2019-03-20] MEDS ORDERED: fentaNYL INJECTION 100 MCG/2 ML AMP IVP PRN (18:00)
[2019-03-20 18:26] VITALS: BP 117/74
== END 2019-03-20 18:26 | disposition short-term general hospital (02) ==
LOC: EDUNIT# 10:12 → ER 10:13
DX: T83.022A Displacement of nephrostomy catheter, initial encounter (principal); F79 Unspecified intellectual disabilities; Q90.9 Down syndrome, unspecified; M10.9 Gout, unspecified; Z82.49 Family history of ischemic heart disease and other diseases of the circulatory system
CPT/HCPCS: 36415; 74176; 80053; 81000; 85025; 87077; 87088; 87186; 96374

== ENCOUNTER 2019-07-13 08:18 | Emergency (ER) | payer MEDICARE, MEDICAID ==
[~2019-07-13] VITALS: Ht 160 cm; Wt 95.2 kg
[~2019-07-13 08:18] MED LIST changes: +SIMV20TA26 PO
--- NOTE | 2019-07-13 08:31 | ED Neurological Problem ---
General Stated Complaint: SEIZURES Source: patient Exam Limitations: no limitations History of Present Illness Date Seen by Provider: Jul 13, 2019 Time Seen by Provider: 08:20 Initial Comments Patient presents to ER by EMS from his place of work where he was found on the toilet having apparently some seizure-like activity. He does not have a history of epilepsy. He has dementia related to his Down syndrome. At the time EMS arrived they said his behavior was at baseline. No history of diabetes. He was not accompanied by any paperwork or medicine list. He gives no meaningful history. Indicates he is not having any pain anywhere. He has a bruise on his left arm which he says is old. He has a history of bilateral ureteral obstruction with renal failure and neurogenic bladder with subsequent nephrostomy tube placed. Is followed by Dr. Alarcon (sp?) Nephrology at [facility]. Allergies and Home Medications Allergies Coded Allergies: No Known Drug Allergies (Unverified , 07/13/19) Home Medications Acetaminophen 500 Mg Tablet, 500-1,000 MG PO Q6H PRN for PAIN-MILD OR TEMPATURE, (Reported) Clotrimazole/Betamethasone Dip 15 Gm Cream..g., TOP TID PRN for IRRITATION, (Reported) Simvastatin 20 Mg Tablet, 20 MG PO HS, (Reported) Patient Home Medication List Home Medication List Reviewed: Yes Review of Systems Review of Systems Constitutional: see HPI (review of systems Limited due to patient's baseline dementia and Down syndrome.); No fever, No weakness Eyes: Denies Blindness, Denies Blurred Vision Ears, Nose, Mouth, Throat: denies ear pain, denies nose pain, denies throat pain Respiratory: No cough, No short of breath Cardiovascular: No chest pain, No palpitations Gastrointestinal: No abdominal pain, No constipation, No vomiting Musculoskeletal: No back pain, No joint pain Skin: see HPI; No rash All Other Systems Reviewed Negative Unless Noted: Yes Past Twjaggp-Jwltpt-Sunvio Hx Patient Social History Alcohol Use: Denies Use Recreational Drug Use: No Smoking Status: Never a Smoker 2nd Hand Smoke Exposure: Yes Recent Hopitalizations: No Immunizations Up To Date Tetanus Booster (TDap): Unknown Date of Pneumonia Vaccine: May 06, 2008 Date of Influenza Vaccine: Feb 03, 2019 Seasonal Allergies Seasonal Allergies: No Past Medical History Surgeries: Yes Renal Respiratory: No Currently Using CPAP: No Currently Using BIPAP: No Cardiac: Yes (POSSIBLE DEFECT THAT WAS FIXED) Congenital Heart Disease Neurological: Yes (SEVERE MR AND DOWN'S SYNDROME) Developmental Disorder Genitourinary: Yes Bladder Infection, Renal Failure, Neurogenic Bladder Gastrointestinal: No Chronic Constipation Musculoskeletal: Yes Gout Endocrine: No HEENT: No Cancer: No Did You Recieve Any Treatments: No Psychosocial: No Integumentary: No Blood Disorders: No Family Medical History Cardiovascular disease 19 FATHER Hypertension G8 BROTHER Neoplasm maternal grandmother (some kind of cancer) Physical Exam Vital Signs Vital Signs - First Documented 07/13/19 08:18 Temp 35.9 Pulse 60 Resp 12 B/P (MAP) 119/82 (94) Pulse Ox 97 O2 Delivery Room Air Capillary Refill : Height, Weight, BMI Height: 5'5" Weight: 225lbs. oz. 102.185188ts; 36.00 BMI Method:Estimated General Appearance: WD/WN, no apparent distress HEENT: PERRL/EOMI, normal ENT inspection, TMs normal, pharynx normal Neck: non-tender, full range of motion, supple, normal inspection Respiratory: chest non-tender, lungs clear, normal breath sounds, no respiratory distress, no accessory muscle use Cardiovascular: normal peripheral pulses, regular rate, rhythm, no edema Peripheral Pulses: 2+ Radial Pulses (R), 2+ Radial Pulses (L) Gastrointestinal: normal bowel sounds, non tender, soft Extremities: normal range of motion, non-tender, normal capillary refill Neurologic/Psychiatric: alert, normal mood/affect, other (oriented to person and place at baseline) Crainal Nerves: normal hearing, normal speech (baseline speech), PERRL Motor/Sensory: no motor deficit, no sensory deficit Skin: normal color, warm/dry, ecchymosis ([id number] ecchymoses over the dorsal left wrist) Progress/Results/Core Measures Results/Orders Lab Results Laboratory Tests Test 07/13/19 08:40 07/13/19 10:05 Range/Units White Blood Count 9.2 4.3-11.0 10^3/uL Red Blood Count 4.29 L 4.35-5.85 10^6/uL Hemoglobin 12.9 L 13.3-17.7 G/DL Hematocrit 41 40-54 % Mean Corpuscular Volume 95 80-99 FL Mean Corpuscular Hemoglobin 30 25-34 PG Mean Corpuscular Hemoglobin Concent 32 32-36 G/DL Red Cell Distribution Width 18.7 H 10.0-14.5 % Platelet Count 270 130-400 10^3/uL Mean Platelet Volume 10.1 7.4-10.4 FL Neutrophils (%) (Auto) 64 42-75 % Lymphocytes (%) (Auto) 24 12-44 % Monocytes (%) (Auto) 9 0-12 % Eosinophils (%) (Auto) 2 0-10 % Basophils (%) (Auto) 1 0-10 % Neutrophils # (Auto) 5.9 1.8-7.8 X 10^3 Lymphocytes # (Auto) 2.2 1.0-4.0 X 10^3 Monocytes # (Auto) 0.8 0.0-1.0 X 10^3 Eosinophils # (Auto) 0.2 0.0-0.3 10^3/uL Basophils # (Auto) 0.1 0.0-0.1 10^3/uL Sodium Level 142 135-145 MMOL/L Potassium Level 4.7 3.6-5.0 MMOL/L Chloride Level 108 H 98-107 MMOL/L Carbon Dioxide Level 21 21-32 MMOL/L Anion Gap 13 5-14 MMOL/L Blood Urea Nitrogen 56 H 7-18 MG/DL Creatinine 5.63 H 0.60-1.30 MG/DL Estimat Glomerular Filtration Rate 11 BUN/Creatinine Ratio 10 Glucose Level 116 H 70-105 MG/DL Calcium Level 9.7 8.5-10.1 MG/DL Corrected Calcium 9.7 8.5-10.1 MG/DL Total Bilirubin 0.3 0.1-1.0 MG/DL Aspartate Amino Transf (AST/SGOT) 26 5-34 U/L Alanine Aminotransferase (ALT/SGPT) 35 0-55 U/L Alkaline Phosphatase 355 H 40-136 U/L Troponin I < 0.028 <0.028 NG/ML B-Type Natriuretic Peptide 172.6 H <100.0 PG/ML Total Protein 8.1 6.4-8.2 GM/DL Albumin 4.0 3.2-4.5 GM/DL Urine Color YELLOW Urine Clarity CLOUDY Urine pH 6.5 5-9 Urine Specific [place] 1.010 L 1.016-1.022 Urine Protein 2+ H NEGATIVE Urine Glucose (UA) NEGATIVE NEGATIVE Urine Ketones NEGATIVE NEGATIVE Urine Nitrite POSITIVE H NEGATIVE Urine Bilirubin NEGATIVE NEGATIVE Urine Urobilinogen 0.2 < = 1.0 MG/DL Urine Leukocyte Esterase 3+ H NEGATIVE Urine RBC (Auto) 2+ H NEGATIVE Urine RBC 2-5 H /HPF Urine WBC >100 H /HPF Urine Crystals NONE /LPF Urine Bacteria LARGE H /HPF Urine Casts NONE /LPF Urine Mucus NEGATIVE /LPF Urine Culture Indicated YES My Orders Orders - RASHEEDA LARSON Cbc With Automated Diff (07/13/19 08:25) Comprehensive Metabolic Panel (07/13/19 08:25) Ua Culture If Indicated (07/13/19 08:25) Ekg Tracing (07/13/19 08:25) Ct Head/Cervical Spine Wo (07/13/19 08:44) Chest 1 View, Ap/Pa Only (07/13/19 08:44) Ed Iv/Invasive Line Start (07/13/19 09:22) Ns Iv 1000 Ml (Sodium Chloride 0.9%) (07/13/19 09:22) BNP (07/13/19 09:45) Troponin I (07/13/19 09:45) Urine Culture (07/13/19 10:05) Ceftriaxone For Iv Use (Rocephin For I (07/13/19 11:15) Ns Iv 1000 Ml (Sodium Chloride 0.9%) (07/13/19 12:15) General/Regular (07/13/19 Lunch) Medications Given in ED Current Medications Medications Dose Ordered Sig/Casey Route Start Time Stop Time Status Last Admin Dose Admin Ceftriaxone Sodium 1000 mg/ Sterile Water 10 ml @ 200 mls/hr ONCE ONCE IV 07/13/19 11:15 07/13/19 11:17 DC 07/13/19 11:21 200 MLS/HR Vital Signs/I&O 07/13/19 07/13/19 08:18 15:05 Temp 35.9 35.9 Pulse 60 68 Resp 12 12 B/P (MAP) 119/82 (94) 122/84 (94) Pulse Ox 97 100 O2 Delivery Room Air Room Air Progress Progress Note #1: Time: 08:32 Progress Note We'll check some basic labs and urinalysis. EKG normal. Aseptic vital signs. Plan to scan his head. He has a history of urinary obstruction. Could be a syncopal event vasovagal versus actual seizure. Progress Note #2: Time: 10:31 Progress Note Approximately 15 minutes ago nursing made us aware that the patient was getting up off the commode when his knees buckled and he had a single episode. She had a hold of him and lowered him down to his knees. He did not strike his head. He was only unconscious for a brief few seconds. He was helped back in the bed without issue. We did obtain enough urine to send down for lab. Unfortunately most of his urine has been wasted out on the floor every time he got up to the commode. He does appear to be passing urine but were unable to get an accurate measurement. There is concern since he had stents placed in his ureters 2 weeks ago and his creatinine is 5.6 that he could have obstruction again. 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 Initial ECG Impression Date: Jul 13, 2019 Initial ECG Impression Time: 08:26 Initial ECG Rate: 63 Initial ECG Rhythm: Normal Sinus Initial ECG Intervals: Normal Initial ECG Impression: Normal Initial ECG Comparisson: Unchanged Comment Normal sinus rhythm with incomplete right bundle-branch block. No clinically relevant ST elevation or depression. Diagnostic Imaging Diagonstic Imaging: Xray Plain Films/CT/US/NM/MRI: chest Comments [facility], [place] NAME: DELLA RODRIGUEZ [facility] REC#: [id number] PT STATUS: REG ER : 1960 PHYSICIAN: RASHEEDA LARSON MD ADMIT DATE: 07/13/19/ER Signed Date of Exam:07/13/19 CHEST 1 VIEW, AP/PA ONLY Indication: Seizure Portable chest 9:13 AM Heart size and pulmonary vascularity are normal. Lungs are clear. There are no effusions or pneumothoraces. IMPRESSION: Negative chest Dictated by: Dictated on workstation # [id number] Dict: 07/13/19919 Trans: 07/13/19920 TB [id number] Interpreted by: RAMA CHACON MD Electronically signed by: RAMA CHACON MD 07/13/19920 Reviewed: Reviewed by Me Diagonstic Imaging: CT (without IV contrast) Plain Films/CT/US/NM/MRI: c-spine, head Comments NAME: DELLA RODRIGUEZ [facility] REC#: [id number] PT STATUS: REG ER : 1960 PHYSICIAN: RASHEEDA LARSON MD ADMIT DATE: 07/13/19/ER Draft Date of Exam:07/13/19 CT HEAD/CERVICAL SPINE WO PROCEDURE: CT head and CT cervical spine without contrast. TECHNIQUE: Multiple contiguous axial images were obtained through the brain and cervical spine without the use of intravenous contrast. Sagittal and coronal reformations through the cervical spine were then performed. Auto Exposure Controls were utilized during the CT exam to meet ALARA standards for radiation dose reduction. INDICATION: Seizure. COMPARISON: Prior CT from 11/12/2014. FINDINGS: CT HEAD: There is some mild prominent CSF along the right anterior temporal convexity, perhaps owing to right temporal lobe atrophy. The ventricular size and sulcal pattern are stable. There is no sulcal effacement or midline shift. No acute intra-axial or extra-axial hemorrhage is seen. The cisterns are patent. The visualized paranasal sinuses are clear. IMPRESSION: No acute intracranial process is detected. CT CERVICAL SPINE: Minimal retrolisthesis of C3 on C4 is again noted. Significant degenerative disc disease at C2-C3 and C3-C4 is again noted with disc space narrowing and marginal spurring. Prominent anterior osteophytes at the C2-C3 level are noted. The prominent pre-dental space is similar to the prior CT. There are some erosive changes of the C1-C2 articulation on the left side, new since the CT study from 2014. There is some increasing sclerosis of the C2 vertebral body, in particular the odontoid and vertebral body extending to the left side. There is some sclerosis involving the left aspect of the C1 ring. No fractures are identified. The prevertebral tissues are normal. IMPRESSION: The cervical spondylosis and erosive changes, particularly at the C1-T2 level, have increased since the exam from 2014. No acute fracture is detected. Dictated on workstation # [id number] Dict: 07/13/19 0945 Trans: 07/13/19 1003 [id number] Interpreted by: QUIQUE BRIGGS MD Electronically signed by: Reviewed: Reviewed by Me Departure Impression Primary Impression: Syncopal episodes Qualified Codes: R55 - Syncope and collapse Additional Impressions: Seizure-like activity Acute renal failure (ARF) Qualified Codes: N17.9 - Acute kidney failure, unspecified UTI (urinary tract infection) Qualified Codes: N30.01 - Acute cystitis with hematuria Disposition: XFER SHT-TRM HOSP Condition: Stable Transfer Transfer Reason: Exceeds level of care Time Spoke to Accepting Phy: 10:35 Transfer Progress Notes Discussed the case with Dr. Maldonado, internal medicine. He agrees to accept the patient. Transfer Time: 15:00 Transfer Facility: [place], [place] Method of Transfer: EMS Departure-Patient Inst. Referrals: NATY DANG DO (PCP/Family) Primary Care Physician RASHEEDA LARSON Jul 13, 2019 08:31
[2019-07-13 08:55] LABS: BASOPHILS # (AUTO) 0.1 10^3/uL (0.0-0.1); BASOPHILS % (AUTO) 1 % (0-10); EOSINOPHILS # (AUTO) 0.2 10^3/uL (0.0-0.3); EOSINOPHILS % (AUTO) 2 % (0-10); HEMATOCRIT 41 % (40-54); HEMOGLOBIN 12.9 G/DL (13.3-17.7); LYMPHOCYTES # (AUTO) 2.2 X 10^3 (1.0-4.0); LYMPHOCYTES % (AUTO) 24 % (12-44); MEAN CORPUSCULAR HEMOGLOBIN 30 PG (25-34); MEAN CORPUSCULAR HGB CONC 32 G/DL (32-36); MEAN CORPUSCULAR VOLUME 95 FL (80-99); MEAN PLATELET VOLUME 10.1 FL (7.4-10.4); MONOCYTES # (AUTO) 0.8 X 10^3 (0.0-1.0); MONOCYTES % (AUTO) 9 % (0-12); NEUTROPHILS # (AUTO) 5.9 X 10^3 (1.8-7.8); NEUTROPHILS % (AUTO) 64 % (42-75); PLATELET COUNT 270 10^3/uL (130-400); RED CELL DISTRIBUTION WIDTH 18.7 % (10.0-14.5); WHITE BLOOD COUNT 9.2 10^3/uL (4.3-11.0)
[2019-07-13 09:11] LABS: BILIRUBIN,TOTAL 0.3 MG/DL (0.1-1.0); CALCIUM 9.7 MG/DL (8.5-10.1); CREATININE SERUM 5.63 MG/DL (0.60-1.30); POTASSIUM 4.7 MMOL/L (3.6-5.0); TOTAL PROTEIN 8.1 GM/DL (6.4-8.2)
[2019-07-13] MEDS ORDERED: NS IV 1000 ML 1,000 ML IV SCH ×2 (09:22→12:15)
--- NOTE | 2019-07-13 09:22 | Diagnostic Imaging Report ---
Indication: Seizure Portable chest 9:13 AM Heart size and pulmonary vascularity are normal. Lungs are clear. There are no effusions or pneumothoraces. IMPRESSION: Negative chest Dictated by: Dictated on workstation # [id number]
--- NOTE | 2019-07-13 10:03 | Diagnostic Imaging Report ---
PROCEDURE: CT head and CT cervical spine without contrast. TECHNIQUE: Multiple contiguous axial images were obtained through the brain and cervical spine without the use of intravenous contrast. Sagittal and coronal reformations through the cervical spine were then performed. Auto Exposure Controls were utilized during the CT exam to meet ALARA standards for radiation dose reduction. INDICATION: Seizure. COMPARISON: Prior CT from 11/12/2014. FINDINGS: CT HEAD: There is some mild prominent CSF along the right anterior temporal convexity, perhaps owing to right temporal lobe atrophy. The ventricular size and sulcal pattern are stable. There is no sulcal effacement or midline shift. No acute intra-axial or extra-axial hemorrhage is seen. The cisterns are patent. The visualized paranasal sinuses are clear. IMPRESSION: No acute intracranial process is detected. CT CERVICAL SPINE: Minimal retrolisthesis of C3 on C4 is again noted. Significant degenerative disc disease at C2-C3 and C3-C4 is again noted with disc space narrowing and marginal spurring. Prominent anterior osteophytes at the C2-C3 level are noted. The prominent pre-dental space is similar to the prior CT. There are some erosive changes of the C1-C2 articulation on the left side, new since the CT study from 2014. There is some increasing sclerosis of the C2 vertebral body, in particular the odontoid and vertebral body extending to the left side. There is some sclerosis involving the left aspect of the C1 ring. No fractures are identified. The prevertebral tissues are normal. IMPRESSION: The cervical spondylosis and erosive changes, particularly at the C1-T2 level, have increased since the exam from 2014. No acute fracture is detected. Dictated by: Dictated on workstation # [id number]
--- NOTE | 2019-07-13 10:10 | NUR ---
Pt getting back into bed after using bedside commode. Pt became pale and weak. This nurse lowered pt to floor; pt did not fall. Pt assited back into bed with the help of DAYLIN Phelps and DAYLIN Glynn.
--- NOTE | 2019-07-13 10:44 | NUR ---
Called shift captain at this time. To call dispatch when room is available.
[2019-07-13 10:59] LABS: CLARITY,URINE CLOUDY; COLOR,URINE YELLOW; PH,URINE 6.5 (5-9)
[2019-07-13 11:00] LABS: BACTERIA,URINE LARGE /HPF; BILIRUBIN,URINE NEGATIVE (NEGATIVE); GLUCOSE, URINE (UA) NEGATIVE (NEGATIVE); KETONES,URINE NEGATIVE (NEGATIVE); LEUKOCYTE ESTERASE ,URINE 3+ (NEGATIVE); NITRITE,URINE POSITIVE (NEGATIVE); PROTEIN,URINE 2+ (NEGATIVE); WBC,URINE >100 /HPF
[2019-07-13] MEDS ORDERED: cefTRIAXone FOR IV USE 1,000 MG in WATER (STERILE) FOR INJECTION 10 ML IV ONE (11:15)
--- NOTE | 2019-07-13 11:52 | NUR ---
Called [facility] to check status of room. [facility] reports they are waiting for pt to be discharded and housekeeping to clean room. [facility] to call with room at that time.
--- NOTE | 2019-07-13 13:41 | NUR ---
meal tray ordered for pt at this time.
--- NOTE | 2019-07-13 14:03 | NUR ---
Shift captain called at this time.
[2019-07-13 15:05] VITALS: BP 122/84
--- OUTSIDE RECORDS SUMMARY | 2019-07-15 16:24 | XMS REPORT | Continuity of Care Document ---
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 (SEVERE) OBESITY DUE TO EXCESS CA 02/20/2019 JULIO CESAR NUNEZ, ALI FACP CCDS Ot E78.4 OTHER HYPERLIPIDEMIA 02/20/2019 JULIO CESAR KENT [facility], ALI FACP CCDS Ot F71 MODERATE INTELLECTUAL DISABILITIES 02/20/2019 JULIO CESAR NUNEZ, ALI FACP CCDS Ot I51.7 CARDIOMEGALY 02/20/2019 JULIO CESAR NUNEZ, ALI FACP CCDS Ot Q90.9 DOWN SYNDROME, UNSPECIFIED 02/20/2019 GELLENDER DO, NATY Hamilton Ot R10.31 RIGHT LOWER QUADRANT PAIN 02/20/2019 GELLENDER DO, NATY Hamilton Ot R19.7 DIARRHEA, UNSPECIFIED 02/20/2019 GELLENDER DO, NATY Hamilton Ot M25.562 PAIN IN LEFT KNEE 02/20/2019 ROCIO HERNANDEZ HEARING CARE PRACTITIONER Ot M79.89 OTHER SPECIFIED SOFT TISSUE DISORDERS 02/24/2019 GELLENDER DO, NATY Hamilton Ot B96.20 UNSP ESCHERICHIA COLI THE CAUSE OF DI 02/24/2019 GELLENDER DO, NATY Hamilton Ot E66.9 OBESITY, UNSPECIFIED 02/24/2019 GELLENDER DO, NATY Hamilton Ot E87.2 ACIDOSIS 02/24/2019 GELLENDER DO, NATY Hamilton Ot F79 UNSPECIFIED INTELLECTUAL DISABILITIES 02/24/2019 GELLENDER DO, NATY Hamilton Ot M10.9 GOUT, UNSPECIFIED 02/24/2019 GELLENDER DO, NATY Hamilton Ot N13.6 PYONEPHROSIS 02/24/2019 GELLENDER DO, NATY Hamilton Ot N17.9 ACUTE KIDNEY FAILURE, UNSPECIFIED 02/24/2019 GELLENDER DO, NATY Hamilton Ot N31.9 NEUROMUSCULAR DYSFUNCTION OF BLADDER, UN 02/24/2019 GELLENDER DO, NATY Hamilton Ot Q90.2 TRISOMY 21, TRANSLOCATION 02/24/2019 GELLENDER DO, NATY Hamilton Ot R33.8 OTHER RETENTION OF URINE 02/24/2019 GELLENDER DO, NATY Hamilton Ot Z68.38 BODY MASS INDEX (BMI) 38.0-38.9, ADULT 02/24/2019 GELLENDER DO, NATY Hamilton Ot 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 02/24/2019 GELLENDER DO, NATY Hamilton Ot B96.20 UNSP ESCHERICHIA COLI THE CAUSE OF DI 02/24/2019 GELLENDER DO, NATY Hamilton Ot E66.9 OBESITY, UNSPECIFIED 02/24/2019 GELLENDER DO, NATY Hamilton Ot E87.2 ACIDOSIS 02/24/2019 GELLENDER DO, NATY Hamilton Ot F79 UNSPECIFIED INTELLECTUAL DISABILITIES 02/24/2019 GELLENDER DO, NATY Hamilton Ot M10.9 GOUT, UNSPECIFIED 02/24/2019 GELLENDER DO, NATY Hamilton Ot N13.6 PYONEPHROSIS 02/24/2019 GELLENDER DO, NATY Hamilton Ot N17.9 ACUTE KIDNEY FAILURE, UNSPECIFIED 02/24/2019 GELLENDER DO, NATY Hamilton Ot N31.9 NEUROMUSCULAR DYSFUNCTION OF BLADDER, UN 02/24/2019 GELLENDER DO, NATY Hamilton Ot Q90.2 TRISOMY 21, TRANSLOCATION 02/24/2019 GELLENDER DO, NATY Hamilton Ot R33.8 OTHER RETENTION OF URINE 02/24/2019 GELLENDER DO, NATY Hamilton Ot Z68.38 BODY MASS INDEX (BMI) 38.0-38.9, ADULT 02/24/2019 GELLENDER DO, NATY Hamilton Ot 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 02/24/2019 GELLENDER DO, NATY Hamilton Ot B96.20 UNSP ESCHERICHIA COLI THE CAUSE OF DI 02/24/2019 GELLENDER DO, NATY Hamilton Ot E66.9 OBESITY, UNSPECIFIED 02/24/2019 GELLENDER DO, NATY Hamilton Ot E87.2 ACIDOSIS 02/24/2019 GELLENDER DO, NATY Hamilton Ot F79 UNSPECIFIED INTELLECTUAL DISABILITIES 02/24/2019 GELLENDER DO, NATY Hamilton Ot M10.9 GOUT, UNSPECIFIED 02/24/2019 GELLENDER DO, NATY Hamilton Ot N13.6 PYONEPHROSIS 02/24/2019 GELLENDER DO, NATY Hamilton Ot N17.9 ACUTE KIDNEY FAILURE, UNSPECIFIED 02/24/2019 GELLENDER DO, NATY Hamilton Ot N31.9 NEUROMUSCULAR DYSFUNCTION OF BLADDER, UN 02/24/2019 GELLENDER DO, NATY Hamilton Ot Q90.2 TRISOMY 21, TRANSLOCATION 02/24/2019 GELLENDER DO, NATY Hamilton Ot R33.8 OTHER RETENTION OF URINE 02/24/2019 GELLENDER DO, NATY Hamilton Ot Z68.38 BODY MASS INDEX (BMI) 38.0-38.9, ADULT 02/24/2019 GELLENDER DO, NATY Hamilton Ot 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 02/25/2019 GELLENDER DO, NATY Hamilton Ot B96.20 UNSP ESCHERICHIA COLI THE CAUSE OF DI 02/25/2019 GELLENDER DO, NATY Hamilton Ot E66.9 OBESITY, UNSPECIFIED 02/25/2019 GELLENDER DO, NATY Hamilton Ot E87.2 ACIDOSIS 02/25/2019 GELLENDER DO, NATY Hamilton Ot F79 UNSPECIFIED INTELLECTUAL DISABILITIES 02/25/2019 GELLENDER DO, NATY Hamilton Ot M10.9 GOUT, UNSPECIFIED 02/25/2019 GELLENDER DO, NATY Hamilton Ot N13.6 PYONEPHROSIS 02/25/2019 GELLENDER DO, NATY Hamilton Ot N17.9 ACUTE KIDNEY FAILURE, UNSPECIFIED 02/25/2019 GELLENDER DO, NATY Hamilton Ot N31.9 NEUROMUSCULAR DYSFUNCTION OF BLADDER, UN 02/25/2019 NATY DANG DO Ot Q90.2 TRISOMY 21, TRANSLOCATION 02/25/2019 NATY DANG DO Ot R33.8 OTHER RETENTION OF URINE 02/25/2019 NATY DANG DO Ot Z68.38 BODY MASS INDEX (BMI) 38.0-38.9, ADULT 02/25/2019 NATY DANG DO Ot 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 03/14/2019 JAE DO, CARIDAD K Ot F79 UNSPECIFIED INTELLECTUAL DISABILITIES 03/14/2019 JAE DO, CARIDAD K Ot M10.9 GOUT, UNSPECIFIED 03/14/2019 JAE DO, CARIDAD K Ot N13.30 UNSPECIFIED HYDRONEPHROSIS 03/14/2019 JAE DO, CARIDAD K Ot N18.9 CHRONIC KIDNEY DISEASE, UNSPECIFIED 03/14/2019 JAE DO, CARIDAD K Ot N31.9 NEUROMUSCULAR DYSFUNCTION OF BLADDER, UN 03/14/2019 JAE DO, CARIDAD K Ot N39.0 URINARY TRACT INFECTION, SITE NOT SPECIF 03/14/2019 JAE DO, CARIDAD K Ot Q90.9 DOWN SYNDROME, UNSPECIFIED 03/14/2019 JAE DO, CARIDAD K Ot T83.022 A DISPLACEMENT OF NEPHROSTOMY CATHETER, IN 03/14/2019 JAE DO, CARIDAD K Ot Z82.49 FAMILY HX OF ISCHEM HEART DIS AND OTH DI 03/19/2019 JAE DO CARIDAD K Ot F79 UNSPECIFIED INTELLECTUAL DISABILITIES 03/19/2019 JAE DO CARIDAD K Ot M10.9 GOUT, UNSPECIFIED 03/19/2019 JAE DO, CARIDAD K Ot N13.30 UNSPECIFIED HYDRONEPHROSIS 03/19/2019 JAE DO, CARIDAD K Ot N18.9 CHRONIC KIDNEY DISEASE, UNSPECIFIED 03/19/2019 JAE DO, CARIDDA K Ot N31.9 NEUROMUSCULAR DYSFUNCTION OF BLADDER, UN 03/19/2019 JAE DO, CARIDAD K Ot N39.0 URINARY TRACT INFECTION, SITE NOT SPECIF 03/19/2019 JAE DO, CARIDAD K Ot Q90.9 DOWN SYNDROME, UNSPECIFIED 03/19/2019 JAE DO, CARIDAD K Ot T83.022 A DISPLACEMENT OF NEPHROSTOMY CATHETER, IN 03/19/2019 JAE DO, CARIDAD K Ot Z82.49 FAMILY HX OF ISCHEM HEART DIS AND OTH DI 03/20/2019 GURWINDER KENT, MARY Iyer Ot 682.2 CELLULITIS OF TRUNK 03/20/2019 GURWINDER KENT, MARY Iyer Ot V72.84 EXAM PRE-OPERATIVE NOS 03/20/2019 NATY DANG DO Ot 429.3 CARDIOMEGALY 03/20/2019 NATY DANG DO Ot V72.63 PRE-PROCEDURAL LABORATORY EXAMINATION 03/20/2019 NATY DANG DO Ot V72.81 [id number] CARDIOVASCULAR 03/20/2019 NATY DANG DO Ot V72.83 EXAM PRE-OPERATIVE NEC 03/20/2019 JULIO CESAR KENT FACC, ALI FACP CCDS Ot E66.01 MORBID (SEVERE) OBESITY DUE TO EXCESS CA 03/20/2019 JULIO CESAR KENT FACC, ALI FACP CCDS Ot E78.4 OTHER HYPERLIPIDEMIA 03/20/2019 JULIO CESAR KENT FACC, ALI FACP CCDS Ot F71 MODERATE INTELLECTUAL DISABILITIES 03/20/2019 JULIO CESAR KENT FACC, ALI FACP CCDS Ot I51.7 CARDIOMEGALY 03/20/2019 JULIO CESAR KENT FACC, ALI FACP CCDS Ot Q90.9 DOWN SYNDROME, UNSPECIFIED 03/20/2019 NATY DANG DO Ot R10.31 RIGHT LOWER QUADRANT PAIN 03/20/2019 NATY DANG DO Ot R19.7 DIARRHEA, UNSPECIFIED 03/20/2019 NATY DANG DO Ot M25.562 PAIN IN LEFT KNEE 03/20/2019 ROCIO HERNANDEZ HEARING CARE PRACTITIONER Ot M79.89 OTHER SPECIFIED SOFT TISSUE DISORDERS 03/20/2019 RIANNA KEY BLASTING ENTRY SPECIALIST Ot F79 UNSPECIFIED INTELLECTUAL DISABILITIES 03/20/2019 RIANNA KEY APRN Ot M10 .9 GOUT, UNSPECIFIED 03/20/2019 RIANNA KEY APRN Ot Q90 .9 DOWN SYNDROME, UNSPECIFIED 03/20/2019 RIANNA KEY APRN Ot T83.022A DISPLACEMENT OF NEPHROSTOMY CATHETER, IN 03/20/2019 RIANNA KEY APRN Ot Z82.49 FAMILY HX OF ISCHEM HEART DIS AND OTH DI 03/23/2019 RIANNA KEY APRN Ot F79 UNSPECIFIED INTELLECTUAL DISABILITIES 03/23/2019 KEY, PETER J BLASTING ENTRY SPECIALIST Ot M10 .9 GOUT, UNSPECIFIED 03/23/2019 RIANNA KEY BLASTING ENTRY SPECIALIST Ot Q90 .9 DOWN SYNDROME, UNSPECIFIED 03/23/2019 RIANNA KEY BLASTING ENTRY SPECIALIST Ot T83.022A DISPLACEMENT OF NEPHROSTOMY CATHETER, IN 03/23/2019 RIANNA KEY BLASTING ENTRY SPECIALIST Ot Z82.49 FAMILY HX OF ISCHEM HEART DIS AND OTH DI Procedures Code Description Performed By Per formed On [id number] DR UP OF URETHRA WITH DRAINAGE DEVICE 02/25/2019 [id number] IN SPECTION OF BLADDER, ENDO 02/25/2019 Results Test Result Range Complete urinalysis with reflex to cultu re - 02/19/19 15:46 Urine color determination YELLOW NRG Urine clarity determination VERY CLOUDY NRG Urine pH measurement by test strip 6 5-9 Specific gravity of urine by test strip 1.010 1.016-1.022 Urine protein assay by test strip, semi-quantitative 1+ NEGATIVE Urine glucose detection by automated test strip NE GATIVE NEGATIVE Erythrocytes detection in urine sediment by light micr oscopy 2+ NEGATIVE Urine ketones detection by automated test strip NE GATIVE NEGATIVE Urine nitrite detection by test strip POSITIVE NEGATIVE Urine total bilirubin detection by test strip NEGA TIVE NEGATIVE Urine urobilinogen measurement by automated test strip (mass/volume) NORMAL NORMAL Urine leukocyte esterase detection by dipstick 3+ NEGATIVE Automated urine sediment erythrocyte cou nt by microscopy (number/high power field) [HPF] NRG Automated urine sediment leukocyte count by microscopy (number/high power field) TNTC NRG Bacteria detection in urine sediment by light microsco py LARGE NRG Crystals detection in urine sediment by light microsco py NONE NRG Casts detection in urine sediment by light microscopy NONE NRG Mucus detection in urine sediment by light microscopy NEGATIVE NRG Complete urinalysis with reflex to culture YES NRG Bacterial urine culture - 02/19/19 15:46 Bacterial urine culture [id number] NRG COLONY COUNT >100,000/ML NRG FTX;REPORTABLE SUSCEPTIBILITY REPORTED 02-21-19, 0 926. NRG Dirithromycin susceptibility test by dis k diffusion - 02/19/19 15:46 Gentamicin susceptibility test by minimum inhibitory c oncentration <= NRG Trimethoprim/sulfamethoxazole susceptibi lity test by minimum inhibitoryconcentration <= NRG Levofloxacin susceptibility test by minimum inhibitory concentration <= NRG Ampicillin susceptibility test by minimum inhibitory c oncentration > NRG Cefazolin susceptibility test by minimum inhibitory co ncentration 2 NRG Ceftriaxone susceptibility test by minimum inhibitory concentration <= NRG Ciprofloxacin susceptibility test by minimum inhibitor y concentration <= NRG Meropenem susceptibility test by minimum inhibitory co ncentration <= NRG Nitrofurantoin susceptibility test by mi nimum inhibitory concentration <= NRG Amoxicillin and clavulanate potassium susc DOUGLAS = NRG Complete blood count (CBC) with automate d white blood cell (WBC) differential - 02/19/19 16:35 Blood leukocytes automated count (number/volume) 8.0 10*3/uL 4.3-11.0 Blood erythrocytes automated count (number/volume) 4.06 10*6/uL 4.35-5.85 Venous blood hemoglobin measurement (mass/volume) 12.6 g/dL 13.3-17.7 Blood hematocrit (volume fraction) 40 % 40-54 Automated erythrocyte mean corpuscular volume 98 [ foz_us] 80-99 Automated erythrocyte mean corpuscular h emoglobin (mass per erythrocyte) 31 pg 25-34 Automated erythrocyte mean corpuscular h emoglobin concentration measurement (mass/volume) 32 g/dL 32-36 Automated erythrocyte distribution width ratio 16. 0 % 10.0- 14.5 Automated blood platelet count (count/volume) 274 10*3/uL 130-400 Automated blood platelet mean volume measurement 9.3 [foz_us] 7.4-10.4 Automated blood neutrophils/100 leukocytes 59 % 42-75 Automated blood lymphocytes/100 leukocytes 26 % 12-44 Blood monocytes/100 leukocytes 13 % 0-12 Automated blood eosinophils/100 leukocytes 2 % 0-10 Automated blood basophils/100 leukocytes 1 % 0-10 Blood neutrophils automated count (number/volume) 4.7 10*3 1.8-7.8 Blood lymphocytes automated count (number/volume) 2.1 10*3 1.0-4.0 Blood monocytes automated count (number/volume) 1. 0 10*3 0.0-1.0 Automated eosinophil count 0.1 10*3/uL 0 .0-0.3 Automated blood basophil count (count/volume) 0.1 10*3/uL 0.0-0.1 Whole blood basic metabolic panel - 02/03 11/21 16:35 Serum or plasma sodium measurement (moles/volume) 138 mmol/L 135-145 Serum or plasma potassium measurement (moles/volume) 4.8 mmol/L 3.6-5.0 Serum or plasma chloride measurement (moles/volume) 107 mmol/L 98-107 Carbon dioxide 22 mmol/L 21-32 Serum or plasma anion gap determination (moles/volume) 9 mmol/L 5-14 Serum or plasma urea nitrogen measurement (mass/volume ) 41 mg/dL 7-18 Serum or plasma creatinine measurement (mass/volume) 2.45 mg/dL 0.60-1.30 Serum or plasma urea nitrogen/creatinine mass ratio 17 NRG Serum or plasma creatinine measurement w ith calculation of estimated glomerular filtration rate 27 NRG Serum or plasma glucose measurement (mass/volume) 104 mg/dL 70-105 Serum or plasma calcium measurement (mass/volume) 8.4 mg/dL 8.5-10.1 Complete blood count (CBC) with automate d white blood cell (WBC) differential - 02/20/19 03:50 Blood leukocytes automated count (number/volume) 13.2 10*3/uL 4.3-11.0 Blood erythrocytes automated count (number/volume) 4.49 10*6/uL 4.35-5.85 Venous blood hemoglobin measurement (mass/volume) 14.2 g/dL 13.3-17.7 Blood hematocrit (volume fraction) 44 % 40-54 Automated erythrocyte mean corpuscular volume 98 [ foz_us] 80-99 Automated erythrocyte mean corpuscular h emoglobin (mass per erythrocyte) 32 pg 25-34 Automated erythrocyte mean corpuscular h emoglobin concentration measurement (mass/volume) 32 g/dL 32-36 Automated erythrocyte distribution width ratio 16. 1 % 10.0- 14.5 Automated blood platelet count (count/volume) 294 10*3/uL 130-400 Automated blood platelet mean volume measurement 9.7 [foz_us] 7.4-10.4 Automated blood neutrophils/100 leukocytes 66 % 42-75 Automated blood lymphocytes/100 leukocytes 22 % 12-44 Blood monocytes/100 leukocytes 11 % 0-12 Automated blood eosinophils/100 leukocytes 1 % 0-10 Automated blood basophils/100 leukocytes 1 % 0-10 Blood neutrophils automated count (number/volume) 8.7 10*3 1.8-7.8 Blood lymphocytes automated count (number/volume) 2.9 10*3 1.0-4.0 Blood monocytes automated count (number/volume) 1. 4 10*3 0.0-1.0 Automated eosinophil count 0.1 10*3/uL 0 .0-0.3 Automated blood basophil count (count/volume) 0.1 10*3/uL 0.0-0.1 Whole blood basic metabolic panel - 02/03 12/22 03:50 Serum or plasma sodium measurement (moles/volume) 141 mmol/L 135-145 Serum or plasma potassium measurement (moles/volume) 5.0 mmol/L 3.6-5.0 Serum or plasma chloride measurement (moles/volume) 109 mmol/L 98-107 Carbon dioxide 20 mmol/L 21-32 Serum or plasma anion gap determination (moles/volume) 12 mmol/L 5-14 Serum or plasma urea nitrogen measurement (mass/volume ) 38 mg/dL 7-18 Serum or plasma creatinine measurement (mass/volume) 2.55 mg/dL 0.60-1.30 Serum or plasma urea nitrogen/creatinine mass ratio 15 NRG Serum or plasma creatinine measurement w ith calculation of estimated glomerular filtration rate 26 NRG Serum or plasma glucose measurement (mass/volume) 118 mg/dL 70-105 Serum or plasma calcium measurement (mass/volume) 9.2 mg/dL 8.5-10.1 Complete urinalysis with reflex to cultu re - 02/20/19 09:04 Urine color determination RED NRG Urine clarity determination BLOODY NR G Urine pH measurement by test strip 8 5-9 Specific gravity of urine by test strip 1.015 1.016-1.022 Urine protein assay by test strip, semi-quantitative 4+ NEGATIVE Urine glucose detection by automated test strip NE GATIVE NEGATIVE Erythrocytes detection in urine sediment by light micr oscopy 3+ NEGATIVE Urine ketones detection by automated test strip 1+ NEGATIVE Urine nitrite detection by test strip NEGATIVE NEGATIVE Urine total bilirubin detection by test strip NEGA TIVE NEGATIVE Urine urobilinogen measurement by automated test strip (mass/volume) NORMAL NORMAL Urine leukocyte esterase detection by dipstick NEG ATIVE NEGATIVE Automated urine sediment erythrocyte cou nt by microscopy (number/high power field) TNTC NRG Automated urine sediment leukocyte count by microscopy (number/high power field) > [HPF] NRG Bacteria detection in urine sediment by light microsco py MODERATE NRG Crystals detection in urine sediment by light microsco py NONE NRG Casts detection in urine sediment by light microscopy NONE NRG Mucus detection in urine sediment by light microscopy NEGATIVE NRG Complete urinalysis with reflex to culture CULTURE PENDING NRG Capillary blood glucose measurement by g lucometer (mass/volume) - 02/20/19 11:13 Capillary blood glucose measurement by glucometer (mas s/volume) 102 mg/dL 70-110 Capillary blood glucose measurement by g lucometer (mass/volume) - 02/20/19 15:21 Capillary blood glucose measurement by glucometer (mas s/volume) 109 mg/dL 70-110 Capillary blood glucose measurement by g lucometer (mass/volume) - 02/20/19 20:27 Capillary blood glucose measurement by glucometer (mas s/volume) 128 mg/dL 70-110 Automated blood complete blood count (he mogram) panel - 02/21/19 05:27 Blood leukocytes automated count (number/volume) 13.7 10*3/uL 4.3-11.0 Blood erythrocytes automated count (number/volume) 4.12 10*6/uL 4.35-5.85 Venous blood hemoglobin measurement (mass/volume) 13.2 g/dL 13.3-17.7 Blood hematocrit (volume fraction) 41 % 40-54 Automated erythrocyte mean corpuscular volume 100 [foz_us] 80-99 Automated erythrocyte mean corpuscular h emoglobin (mass per erythrocyte) 32 pg 25-34 Automated erythrocyte mean corpuscular h emoglobin concentration measurement (mass/volume) 32 g/dL 32-36 Automated erythrocyte distribution width ratio 16. 2 % 10.0- 14.5 Automated blood platelet count (count/volume) 259 10*3/uL 130-400 Automated blood platelet mean volume measurement 10.0 [foz_us] 7.4-10.4 Whole blood basic metabolic panel - 02/03 01/22 05:27 Serum or plasma sodium measurement (moles/volume) 145 mmol/L 135-145 Serum or plasma potassium measurement (moles/volume) 5.0 mmol/L 3.6-5.0 Serum or plasma chloride measurement (moles/volume) 115 mmol/L 98-107 Carbon dioxide 19 mmol/L 21-32 Serum or plasma anion gap determination (moles/volume) 11 mmol/L 5-14 Serum or plasma urea nitrogen measurement (mass/volume ) 36 mg/dL 7-18 Serum or plasma creatinine measurement (mass/volume) 3.03 mg/dL 0.60-1.30 Serum or plasma urea nitrogen/creatinine mass ratio 12 NRG Serum or plasma creatinine measurement w ith calculation of estimated glomerular filtration rate 22 NRG Serum or plasma glucose measurement (mass/volume) 125 mg/dL 70-105 Serum or plasma calcium measurement (mass/volume) 8.7 mg/dL 8.5-10.1 Capillary blood glucose measurement by g lucometer (mass/volume) - 02/21/19 05:28 Capillary blood glucose measurement by glucometer (mas s/volume) 121 mg/dL 70-110 Capillary blood glucose measurement by g lucometer (mass/volume) - 02/21/19 10:54 Capillary blood glucose measurement by glucometer (mas s/volume) 115 mg/dL 70-110 Whole blood basic metabolic panel - 02/03 01/22 18:51 Serum or plasma sodium measurement (moles/volume) 140 mmol/L 135-145 Serum or plasma potassium measurement (moles/volume) 5.2 mmol/L 3.6-5.0 Serum or plasma chloride measurement (moles/volume) 111 mmol/L 98-107 Carbon dioxide 19 mmol/L 21-32 Serum or plasma anion gap determination (moles/volume) 10 mmol/L 5-14 Serum or plasma urea nitrogen measurement (mass/volume ) 40 mg/dL 7-18 Serum or plasma creatinine measurement (mass/volume) 3.64 mg/dL 0.60-1.30 Serum or plasma urea nitrogen/creatinine mass ratio 11 NRG Serum or plasma creatinine measurement w ith calculation of estimated glomerular filtration rate 17 NRG Serum or plasma glucose measurement (mass/volume) 129 mg/dL 70-105 Serum or plasma calcium measurement (mass/volume) 8.2 mg/dL 8.5-10.1 Complete blood count (CBC) with automate d white blood cell (WBC) differential - 02/22/19 05:45 Blood leukocytes automated count (number/volume) 11.6 10*3/uL 4.3-11.0 Blood erythrocytes automated count (number/volume) 3.52 10*6/uL 4.35-5.85 Venous blood hemoglobin measurement (mass/volume) 11.2 g/dL 13.3-17.7 Blood hematocrit (volume fraction) 35 % 40-54 Automated erythrocyte mean corpuscular volume 101 [foz_us] 80-99 Automated erythrocyte mean corpuscular h emoglobin (mass per erythrocyte) 32 pg 25-34 Automated erythrocyte mean corpuscular h emoglobin concentration measurement (mass/volume) 32 g/dL 32-36 Automated erythrocyte distribution width ratio 16. 6 % 10.0- 14.5 Automated blood platelet count (count/volume) 214 10*3/uL 130-400 Automated blood platelet mean volume measurement 9.8 [foz_us] 7.4-10.4 Automated blood neutrophils/100 leukocytes 68 % 42-75 Automated blood lymphocytes/100 leukocytes 17 % 12-44 Blood monocytes/100 leukocytes 12 % 0-12 Automated blood eosinophils/100 leukocytes 3 % 0-10 Automated blood basophils/100 leukocytes 0 % 0-10 Blood neutrophils automated count (number/volume) 7.9 10*3 1.8-7.8 Blood lymphocytes automated count (number/volume) 2.0 10*3 1.0-4.0 Blood monocytes automated count (number/volume) 1. 4 10*3 0.0-1.0 Automated eosinophil count 0.3 10*3/uL 0 .0-0.3 Automated blood basophil count (count/volume) 0.1 10*3/uL 0.0-0.1 Whole blood basic metabolic panel - 02/04 05:45 Serum or plasma sodium measurement (moles/volume) 138 mmol/L 135-145 Serum or plasma potassium measurement (moles/volume) 4.9 mmol/L 3.6-5.0 Serum or plasma chloride measurement (moles/volume) 109 mmol/L 98-107 Carbon dioxide 17 mmol/L 21-32 Serum or plasma anion gap determination (moles/volume) 12 mmol/L 5-14 Serum or plasma urea nitrogen measurement (mass/volume ) 44 mg/dL 7-18 Serum or plasma creatinine measurement (mass/volume) 4.06 mg/dL 0.60-1.30 Serum or plasma urea nitrogen/creatinine mass ratio 11 NRG Serum or plasma creatinine measurement w ith calculation of estimated glomerular filtration rate 15 NRG Serum or plasma glucose measurement (mass/volume) 167 mg/dL 70-105 Serum or plasma calcium measurement (mass/volume) 7.8 mg/dL 8.5-10.1 Liver function panel (serum or plasma al k phos, alb, total and direct bili, total protein, ALT, AST) - 02/22/19 05:45 Serum or plasma total bilirubin measurement (mass/volu me) 0.3 mg/dL 0.1-1.0 Serum or plasma alkaline phosphatase gab surement (enzymatic activity/volume) 176 U/L 40-136 Serum or plasma aspartate aminotransfera se measurement (enzymatic activity/volume) 31 U/L 5-34 Serum or plasma alanine aminotransferase measurement (enzymatic activity/volume) 29 U/L 0-55 Serum or plasma protein measurement (mass/volume) 6.0 g/dL 6.4-8.2 Serum or plasma albumin measurement (mass/volume) 2.9 g/dL 3.2-4.5 Bilirubin direct 0.2 mg/dL 0.0-0.3 Serum or plasma indirect bilirubin measurement (mass/v olume) 0.1 mg/dL NR Urine protein measurement (mass/volume) - 02/22/19 09:30 Urine protein measurement (mass/volume) 335 mg/dL 6-12 Urine protein/creatinine mass ratio - 09:30 Urine protein measurement (mass/volume) 335 mg/dL 6-12 Urine creatinine measurement (mass/volume) 56 mg/d L 30-125 Urine protein/creatinine mass ratio 5.98 NRG Urine osmolality - 02/22/19 09:30 Urine osmolality 235 % 250-1200 SODIUM URINE RANDOM - 02/22/19 09:30 [id number] 42 % NRG Whole blood basic metabolic panel - 02/04 05/24 06:05 Serum or plasma sodium measurement (moles/volume) 139 mmol/L 135-145 Serum or plasma potassium measurement (moles/volume) 5.0 mmol/L 3.6-5.0 Serum or plasma chloride measurement (moles/volume) 112 mmol/L 98-107 Carbon dioxide 17 mmol/L 21-32 Serum or plasma anion gap determination (moles/volume) 10 mmol/L 5-14 Serum or plasma urea nitrogen measurement (mass/volume ) 45 mg/dL 7-18 Serum or plasma creatinine measurement (mass/volume) 4.80 mg/dL 0.60-1.30 Serum or plasma urea nitrogen/creatinine mass ratio 9 NRG Serum or plasma creatinine measurement w ith calculation of estimated glomerular filtration rate 13 NRG Serum or plasma glucose measurement (mass/volume) 130 mg/dL 70-105 Serum or plasma calcium measurement (mass/volume) 7.9 mg/dL 8.5-10.1 Complete blood count (CBC) with automate d white blood cell (WBC) differential - 02/23/19 06:05 Blood leukocytes automated count (number/volume) 11.9 10*3/uL 4.3-11.0 Blood erythrocytes automated count (number/volume) 3.40 10*6/uL 4.35-5.85 Venous blood hemoglobin measurement (mass/volume) 11.0 g/dL 13.3-17.7 Blood hematocrit (volume fraction) 34 % 40-54 Automated erythrocyte mean corpuscular volume 101 [foz_us] 80-99 Automated erythrocyte mean corpuscular h emoglobin (mass per erythrocyte) 32 pg 25-34 Automated erythrocyte mean corpuscular h emoglobin concentration measurement (mass/volume) 32 g/dL 32-36 Automated erythrocyte distribution width ratio 16. 2 % 10.0- 14.5 Automated blood platelet count (count/volume) 210 10*3/uL 130-400 Automated blood platelet mean volume measurement 9.6 [foz_us] 7.4-10.4 Automated blood neutrophils/100 leukocytes 67 % 42-75 Automated blood lymphocytes/100 leukocytes 19 % 12-44 Blood monocytes/100 leukocytes 12 % 0-12 Automated blood eosinophils/100 leukocytes 3 % 0-10 Automated blood basophils/100 leukocytes 1 % 0-10 Blood neutrophils automated count (number/volume) 7.9 10*3 1.8-7.8 Blood lymphocytes automated count (number/volume) 2.2 10*3 1.0-4.0 Blood monocytes automated count (number/volume) 1. 4 10*3 0.0-1.0 Automated eosinophil count 0.3 10*3/uL 0 .0-0.3 Automated blood basophil count (count/volume) 0.1 10*3/uL 0.0-0.1 Complete urinalysis with reflex to cultu re - 02/24/19 10:45 Urine color determination RED NRG Urine clarity determination VERY CLOUDY NRG Urine pH measurement by test strip 6.5 5-9 Specific gravity of urine by test strip 1.010 1.016-1.022 Urine protein assay by test strip, semi-quantitative 4+ NEGATIVE Urine glucose detection by automated test strip NE GATIVE NEGATIVE Erythrocytes detection in urine sediment by light micr oscopy 5+ NEGATIVE Urine ketones detection by automated test strip NE GATIVE NEGATIVE Urine nitrite detection by test strip POSITIVE NEGATIVE Urine total bilirubin detection by test strip NEGA TIVE NEGATIVE Urine urobilinogen measurement by automated test strip (mass/volume) NORMAL NORMAL Urine leukocyte esterase detection by dipstick 3+ NEGATIVE Automated urine sediment erythrocyte cou nt by microscopy (number/high power field) TNTC NRG Automated urine sediment leukocyte count by microscopy (number/high power field) > [HPF] NRG Bacteria detection in urine sediment by light microsco py MODERATE NRG Crystals detection in urine sediment by light microsco py NONE NRG Casts detection in urine sediment by light microscopy NONE NRG Mucus detection in urine sediment by light microscopy NEGATIVE NRG Complete urinalysis with reflex to culture YES NRG Bacterial urine culture - 02/24/19 10:45 Bacterial urine culture NG NRG Methicillin resistant Staphylococcus aur eus (MRSA) screening culture - 02/25/19 04:15 Methicillin resistant Staphylococcus aureus (MRSA) scr eening culture NEG NRG Complete blood count (CBC) with automate d white blood cell (WBC) differential - 02/25/19 07:45 Blood leukocytes automated count (number/volume) 8.7 10*3/uL 4.3-11.0 Blood erythrocytes automated count (number/volume) 3.23 10*6/uL 4.35-5.85 Venous blood hemoglobin measurement (mass/volume) 10.2 g/dL 13.3-17.7 Blood hematocrit (volume fraction) 32 % 40-54 Automated erythrocyte mean corpuscular volume 99 [ foz_us] 80-99 Automated erythrocyte mean corpuscular h emoglobin (mass per erythrocyte) 32 pg 25-34 Automated erythrocyte mean corpuscular h emoglobin concentration measurement (mass/volume) 32 g/dL 32-36 Automated erythrocyte distribution width ratio 16. 0 % 10.0- 14.5 Automated blood platelet count (count/volume) 236 10*3/uL 130-400 Automated blood platelet mean volume measurement 9.7 [foz_us] 7.4-10.4 Automated blood neutrophils/100 leukocytes 61 % 42-75 Automated blood lymphocytes/100 leukocytes 21 % 12-44 Blood monocytes/100 leukocytes 14 % 0-12 Automated blood eosinophils/100 leukocytes 4 % 0-10 Automated blood basophils/100 leukocytes 1 % 0-10 Blood neutrophils automated count (number/volume) 5.3 10*3 1.8-7.8 Blood lymphocytes automated count (number/volume) 1.8 10*3 1.0-4.0 Blood monocytes automated count (number/volume) 1. 2 10*3 0.0-1.0 Automated eosinophil count 0.4 10*3/uL 0 .0-0.3 Automated blood basophil count (count/volume) 0.1 10*3/uL 0.0-0.1 Whole blood basic metabolic panel - 02/04 07/22 07:45 Serum or plasma sodium measurement (moles/volume) 138 mmol/L 135-145 Serum or plasma potassium measurement (moles/volume) 5.7 mmol/L 3.6-5.0 Serum or plasma chloride measurement (moles/volume) 111 mmol/L 98-107 Carbon dioxide 19 mmol/L 21-32 Serum or plasma anion gap determination (moles/volume) 8 mmol/L 5-14 Serum or plasma urea nitrogen measurement (mass/volume ) 59 mg/dL 7-18 Serum or plasma creatinine measurement (mass/volume) 5.98 mg/dL 0.60-1.30 Serum or plasma urea nitrogen/creatinine mass ratio 10 NRG Serum or plasma creatinine measurement w ith calculation of estimated glomerular filtration rate 10 NRG Serum or plasma glucose measurement (mass/volume) 107 mg/dL 70-105 Serum or plasma calcium measurement (mass/volume) 8.0 mg/dL 8.5-10.1 Complete urinalysis with reflex to cultu re - 03/14/19 00:05 Urine color determination YELLOW NRG Urine clarity determination CLEAR NR G Urine pH measurement by test strip 6.0 5-9 Specific gravity of urine by test strip 1.025 1.016-1.022 Urine protein assay by test strip, semi-quantitative 2+ NEGATIVE Urine glucose detection by automated test strip NE GATIVE NEGATIVE Erythrocytes detection in urine sediment by light micr oscopy 3+ NEGATIVE Urine ketones detection by automated test strip NE GATIVE NEGATIVE Urine nitrite detection by test strip NEGATIVE NEGATIVE Urine total bilirubin detection by test strip NEGA TIVE NEGATIVE Urine urobilinogen measurement by automated test strip (mass/volume) 0.2 mg/dL < = 1.0 Urine leukocyte esterase detection by dipstick 1+ NEGATIVE Automated urine sediment erythrocyte cou nt by microscopy (number/high power field) > [HPF] NRG Automated urine sediment leukocyte count by microscopy (number/high power field) [HPF] NRG Bacteria detection in urine sediment by light microsco py MODERATE NRG Squamous epithelial cells detection in u rine sediment by light microscopy 0-2 NRG Crystals detection in urine sediment by light microsco py NONE NRG Casts detection in urine sediment by light microscopy NONE NRG Mucus detection in urine sediment by light microscopy NEGATIVE NRG Complete urinalysis with reflex to culture YES NRG Complete urinalysis with reflex to cultu re - 03/14/19 00:05 Urine color determination YELLOW NRG Urine clarity determination CLEAR NR G Urine pH measurement by test strip 6.0 5-9 Specific gravity of urine by test strip 1.020 1.016-1.022 Urine protein assay by test strip, semi-quantitative 2+ NEGATIVE Urine glucose detection by automated test strip NE GATIVE NEGATIVE Erythrocytes detection in urine sediment by light micr oscopy 3+ NEGATIVE Urine ketones detection by automated test strip NE GATIVE NEGATIVE Urine nitrite detection by test strip NEGATIVE NEGATIVE Urine total bilirubin detection by test strip NEGA TIVE NEGATIVE Urine urobilinogen measurement by automated test strip (mass/volume) 0.2 mg/dL < = 1.0 Urine leukocyte esterase detection by dipstick 2+ NEGATIVE Automated urine sediment erythrocyte cou nt by microscopy (number/high power field) > [HPF] NRG Automated urine sediment leukocyte count by microscopy (number/high power field) [HPF] NRG Bacteria detection in urine sediment by light microsco py MODERATE NRG Squamous epithelial cells detection in u rine sediment by light microscopy 2-5 NRG Crystals detection in urine sediment by light microsco py NONE NRG Casts detection in urine sediment by light microscopy NONE NRG Mucus detection in urine sediment by light microscopy NEGATIVE NRG Complete urinalysis with reflex to culture YES NRG Bacterial urine culture - 03/14/19 00:05 Bacterial urine culture NG NRG Bacterial urine culture - 03/14/19 00:05 Bacterial urine culture NG NRG Complete blood count (CBC) with automate d white blood cell (WBC) differential - 03/14/19 00:06 Blood leukocytes automated count (number/volume) 9.4 10*3/uL 4.3-11.0 Blood erythrocytes automated count (number/volume) 3.56 10*6/uL 4.35-5.85 Venous blood hemoglobin measurement (mass/volume) 11.2 g/dL 13.3-17.7 Blood hematocrit (volume fraction) 36 % 40-54 Automated erythrocyte mean corpuscular volume 100 [foz_us] 80-99 Automated erythrocyte mean corpuscular h emoglobin (mass per erythrocyte) 31 pg 25-34 Automated erythrocyte mean corpuscular h emoglobin concentration measurement (mass/volume) 31 g/dL 32-36 Automated erythrocyte distribution width ratio 16. 6 % 10.0- 14.5 Automated blood platelet count (count/volume) 481 10*3/uL 130-400 Automated blood platelet mean volume measurement 9.8 [foz_us] 7.4-10.4 Automated blood neutrophils/100 leukocytes 63 % 42-75 Automated blood lymphocytes/100 leukocytes 22 % 12-44 Blood monocytes/100 leukocytes 11 % 0-12 Automated blood eosinophils/100 leukocytes 3 % 0-10 Automated blood basophils/100 leukocytes 1 % 0-10 Blood neutrophils automated count (number/volume) 5.9 10*3 1.8-7.8 Blood lymphocytes automated count (number/volume) 2.1 10*3 1.0-4.0 Blood monocytes automated count (number/volume) 1. 0 10*3 0.0-1.0 Automated eosinophil count 0.3 10*3/uL 0 .0-0.3 Automated blood basophil count (count/volume) 0.1 10*3/uL 0.0-0.1 Comprehensive metabolic panel - 03/14/19 00:06 Serum or plasma sodium measurement (moles/volume) 140 mmol/L 135-145 Serum or plasma potassium measurement (moles/volume) 4.4 mmol/L 3.6-5.0 Serum or plasma chloride measurement (moles/volume) 106 mmol/L 98-107 Carbon dioxide 22 mmol/L 21-32 Serum or plasma anion gap determination (moles/volume) 12 mmol/L 5-14 Serum or plasma urea nitrogen measurement (mass/volume ) 59 mg/dL 7-18 Serum or plasma creatinine measurement (mass/volume) 2.12 mg/dL 0.60-1.30 Serum or plasma urea nitrogen/creatinine mass ratio 28 NRG Serum or plasma creatinine measurement w ith calculation of estimated glomerular filtration rate 32 NRG Serum or plasma glucose measurement (mass/volume) 113 mg/dL 70-105 Serum or plasma calcium measurement (mass/volume) 9.1 mg/dL 8.5-10.1 Serum or plasma total bilirubin measurement (mass/volu me) 0.2 mg/dL 0.1-1.0 Serum or plasma alkaline phosphatase gab surement (enzymatic activity/volume) 218 U/L 40-136 Serum or plasma aspartate aminotransfera se measurement (enzymatic activity/volume) 23 U/L 5-34 Serum or plasma alanine aminotransferase measurement (enzymatic activity/volume) 39 U/L 0-55 Serum or plasma protein measurement (mass/volume) 7.6 g/dL 6.4-8.2 Serum or plasma albumin measurement (mass/volume) 3.8 g/dL 3.2-4.5 CALCIUM CORRECTED 9.3 mg/dL 8.5-10.1 Complete blood count (CBC) with automate d white blood cell (WBC) differential - 03/20/19 11:37 Blood leukocytes automated count (number/volume) 7.1 10*3/uL 4.3-11.0 Blood erythrocytes automated count (number/volume) 3.66 10*6/uL 4.35-5.85 Venous blood hemoglobin measurement (mass/volume) 11.4 g/dL 13.3-17.7 Blood hematocrit (volume fraction) 37 % 40-54 Automated erythrocyte mean corpuscular volume 100 [foz_us] 80-99 Automated erythrocyte mean corpuscular h emoglobin (mass per erythrocyte) 31 pg 25-34 Automated erythrocyte mean corpuscular h emoglobin concentration measurement (mass/volume) 31 g/dL 32-36 Automated erythrocyte distribution width ratio 16. 3 % 10.0- 14.5 Automated blood platelet count (count/volume) 300 10*3/uL 130-400 Automated blood platelet mean volume measurement 9.5 [foz_us] 7.4-10.4 Automated blood neutrophils/100 leukocytes 58 % 42-75 Automated blood lymphocytes/100 leukocytes 27 % 12-44 Blood monocytes/100 leukocytes 11 % 0-12 Automated blood eosinophils/100 leukocytes 3 % 0-10 Automated blood basophils/100 leukocytes 1 % 0-10 Blood neutrophils automated count (number/volume) 4.1 10*3 1.8-7.8 Blood lymphocytes automated count (number/volume) 1.9 10*3 1.0-4.0 Blood monocytes automated count (number/volume) 0. 8 10*3 0.0-1.0 Automated eosinophil count 0.2 10*3/uL 0 .0-0.3 Automated blood basophil count (count/volume) 0.1 10*3/uL 0.0-0.1 Comprehensive metabolic panel - 03/20/19 11:37 Serum or plasma sodium measurement (moles/volume) 141 mmol/L 135-145 Serum or plasma potassium measurement (moles/volume) 4.4 mmol/L 3.6-5.0 Serum or plasma chloride measurement (moles/volume) 105 mmol/L 98-107 Carbon dioxide 23 mmol/L 21-32 Serum or plasma anion gap determination (moles/volume) 13 mmol/L 5-14 Serum or plasma urea nitrogen measurement (mass/volume ) 32 mg/dL 7-18 Serum or plasma creatinine measurement (mass/volume) 1.88 mg/dL 0.60-1.30 Serum or plasma urea nitrogen/creatinine mass ratio 17 NRG Serum or plasma creatinine measurement w ith calculation of estimated glomerular filtration rate 37 NRG Serum or plasma glucose measurement (mass/volume) 96 mg/dL 70-105 Serum or plasma calcium measurement (mass/volume) 9.2 mg/dL 8.5-10.1 Serum or plasma total bilirubin measurement (mass/volu me) 0.5 mg/dL 0.1-1.0 Serum or plasma alkaline phosphatase gab surement (enzymatic activity/volume) 364 U/L 40-136 Serum or plasma aspartate aminotransfera se measurement (enzymatic activity/volume) 28 U/L 5-34 Serum or plasma alanine aminotransferase measurement (enzymatic activity/volume) 31 U/L 0-55 Serum or plasma protein measurement (mass/volume) 7.2 g/dL 6.4-8.2 Serum or plasma albumin measurement (mass/volume) 3.7 g/dL 3.2-4.5 CALCIUM CORRECTED 9.4 mg/dL 8.5-10.1 Complete urinalysis with reflex to cultu re - 03/20/19 14:36 Urine color determination YELLOW NRG Urine clarity determination CLEAR NR G Urine pH measurement by test strip 5.5 5-9 Specific gravity of urine by test strip 1.020 1.016-1.022 Urine protein assay by test strip, semi-quantitative 2+ NEGATIVE Urine glucose detection by automated test strip NE GATIVE NEGATIVE Erythrocytes detection in urine sediment by light micr oscopy 3+ NEGATIVE Urine ketones detection by automated test strip NE GATIVE NEGATIVE Urine nitrite detection by test strip NEGATIVE NEGATIVE Urine total bilirubin detection by test strip NEGA TIVE NEGATIVE Urine urobilinogen measurement by automated test strip (mass/volume) 0.2 mg/dL < = 1.0 Urine leukocyte esterase detection by dipstick 2+ NEGATIVE Automated urine sediment erythrocyte cou nt by microscopy (number/high power field) > [HPF] NRG Automated urine sediment leukocyte count by microscopy (number/high power field) [HPF] NRG Bacteria detection in urine sediment by light microsco py FEW NRG Squamous epithelial cells detection in u rine sediment by light microscopy RARE NRG Crystals detection in urine sediment by light microsco py NONE NRG Casts detection in urine sediment by light microscopy NONE NRG Mucus detection in urine sediment by light microscopy NEGATIVE NRG Complete urinalysis with reflex to culture YES NRG Yeast detection in urine sediment by light microscopy MODERATE NRG Bacterial urine culture - 03/20/19 14:36 Bacterial urine culture [id number] NRG COLONY COUNT >100,000/ML NRG FTX;REPORTABLE SUSCEPTIBILITY REPORTED 03-22-, 0 943 NRG Dirithromycin susceptibility test by dis k diffusion - 03/20/19 14:36 Gentamicin susceptibility test by minimum inhibitory c oncentration <= NRG Levofloxacin susceptibility test by minimum inhibitory concentration <= NRG Tobramycin susceptibility test by minimum inhibitory c oncentration <= NRG Piperacillin/tazobactam susceptibility t est by minimum inhibitory concentration = NRG Ciprofloxacin susceptibility test by minimum inhibitor y concentration <= NRG Meropenem susceptibility test by minimum inhibitory co ncentration 8 NRG Aztreonam susceptibility test by minimum inhibitory co ncentration 8 NRG Cefepime susceptibility test by minimum inhibitory con centration 4 NRG Imipenem susceptibility test by minimum inhibitory con centration > NRG Ceftazidime susceptibility test by minimum inhibitory concentration 4 NRG Complete blood count (CBC) with automate d white blood cell (WBC) differential - 07/13/19 08:40 Blood leukocytes automated count (number/volume) 9.2 10*3/uL 4.3-11.0 Blood erythrocytes automated count (number/volume) 4.29 10*6/uL 4.35-5.85 Venous blood hemoglobin measurement (mass/volume) 12.9 g/dL 13.3-17.7 Blood hematocrit (volume fraction) 41 % 40-54 Automated erythrocyte mean corpuscular volume 95 [ foz_us] 80-99 Automated erythrocyte mean corpuscular h emoglobin (mass per erythrocyte) 30 pg 25-34 Automated erythrocyte mean corpuscular h emoglobin concentration measurement (mass/volume) 32 g/dL 32-36 Automated erythrocyte distribution width ratio 18. 7 % 10.0- 14.5 Automated blood platelet count (count/volume) 270 10*3/uL 130-400 Automated blood platelet mean volume measurement 10.1 [foz_us] 7.4-10.4 Automated blood neutrophils/100 leukocytes 64 % 42-75 Automated blood lymphocytes/100 leukocytes 24 % 12-44 Blood monocytes/100 leukocytes 9 % 0-12 Automated blood eosinophils/100 leukocytes 2 % 0-10 Automated blood basophils/100 leukocytes 1 % 0-10 Blood neutrophils automated count (number/volume) 5.9 10*3 1.8-7.8 Blood lymphocytes automated count (number/volume) 2.2 10*3 1.0-4.0 Blood monocytes automated count (number/volume) 0. 8 10*3 0.0-1.0 Automated eosinophil count 0.2 10*3/uL 0 .0-0.3 Automated blood basophil count (count/volume) 0.1 10*3/uL 0.0-0.1 Comprehensive metabolic panel - 07/13/19 08:40 Serum or plasma sodium measurement (moles/volume) 142 mmol/L 135-145 Serum or plasma potassium measurement (moles/volume) 4.7 mmol/L 3.6-5.0 Serum or plasma chloride measurement (moles/volume) 108 mmol/L 98-107 Carbon dioxide 21 mmol/L 21-32 Serum or plasma anion gap determination (moles/volume) 13 mmol/L 5-14 Serum or plasma urea nitrogen measurement (mass/volume ) 56 mg/dL 7-18 Serum or plasma creatinine measurement (mass/volume) 5.63 mg/dL 0.60-1.30 Serum or plasma urea nitrogen/creatinine mass ratio 10 NRG Serum or plasma creatinine measurement w ith calculation of estimated glomerular filtration rate 11 NRG Serum or plasma glucose measurement (mass/volume) 116 mg/dL 70-105 Serum or plasma calcium measurement (mass/volume) 9.7 mg/dL 8.5-10.1 Serum or plasma total bilirubin measurement (mass/volu me) 0.3 mg/dL 0.1-1.0 Serum or plasma alkaline phosphatase gab surement (enzymatic activity/volume) 355 U/L 40-136 Serum or plasma aspartate aminotransfera se measurement (enzymatic activity/volume) 26 U/L 5-34 Serum or plasma alanine aminotransferase measurement (enzymatic activity/volume) 35 U/L 0-55 Serum or plasma protein measurement (mass/volume) 8.1 g/dL 6.4-8.2 Serum or plasma albumin measurement (mass/volume) 4.0 g/dL 3.2-4.5 CALCIUM CORRECTED 9.7 mg/dL 8.5-10.1 Serum or plasma troponin i.cardiac measu rement (mass/volume) - 07/13/19 08:40 Serum or plasma troponin i.cardiac measurement (mass/v olume) < ng/mL <0.028 Serum or plasma lithium measurement (mol es/volume) - 07/13/19 08:40 BNP PT 172.6 pg/mL <100.0 Complete urinalysis with reflex to cultu re - 07/13/19 10:05 Urine color determination YELLOW NRG Urine clarity determination CLOUDY NR G Urine pH measurement by test strip 6.5 5-9 Specific gravity of urine by test strip 1.010 1.016-1.022 Urine protein assay by test strip, semi-quantitative 2+ NEGATIVE Urine glucose detection by automated test strip NE GATIVE NEGATIVE Erythrocytes detection in urine sediment by light micr oscopy 2+ NEGATIVE Urine ketones detection by automated test strip NE GATIVE NEGATIVE Urine nitrite detection by test strip POSITIVE NEGATIVE Urine total bilirubin detection by test strip NEGA TIVE NEGATIVE Urine urobilinogen measurement by automated test strip (mass/volume) 0.2 mg/dL < = 1.0 Urine leukocyte esterase detection by dipstick 3+ NEGATIVE Automated urine sediment erythrocyte cou nt by microscopy (number/high power field) [HPF] NRG Automated urine sediment leukocyte count by microscopy (number/high power field) > [HPF] NRG Bacteria detection in urine sediment by light microsco py LARGE NRG Crystals detection in urine sediment by light microsco py NONE NRG Casts detection in urine sediment by light microscopy NONE NRG Mucus detection in urine sediment by light microscopy NEGATIVE NRG Complete urinalysis with reflex to culture YES NRG Bacterial urine culture - 07/13/19 10:05 Bacterial urine culture SEE COMMEN NRG COLONY COUNT . NRG FREE TEXT ENTRY 2 PRELIM RAPID ID TEST AT [facility] 07/13 07:50 NRG Encounters ACCT No. Visit Date/Time Discharge Status Pt. Type Provider Facility Loc./Unit Complaint [id number] 07/13/2019 08:19:00 15:10:00 DIS Emergency RASHEEDA LARSON MD [facility] ER SEIZURES [id number] 03/20/2019 10:13:00 18:26:00 DIS Emergency RIANNA KEY BLASTING ENTRY SPECIALIST [facility] ER L NEPHROSTOMY TUBE MALCOLM SEDRICK [id number] 03/13/2019 23:46:00 01:40:00 DIS Emergency JAE CARIDAD VELÁSQUEZ a [facility] ER PULLED DRAIN TUBES OUT OF KIDNEYS [id number] 02/20/2019 14:30:00 20:15:00 DIS Inpatient NATY DANG DO [facility] 4TH UTI, URINARY OB STRUCTION [id number] 02/10/2019 12:55:00 23:59:59 CLS Preadmit NATY DANG DO [facility] RAD RENAL INSUFFICI ENCY [id number] 03/01/2016 14:37:00 23:59:59 CLS Outpatient ROCIO HERNANDEZ [facility] RAD SWELLING OF LOW ER EXTREMITY [id number] 11/28/2015 11:20:00 016 14:16:00 DIS Outpatient NATY DANG DO [facility] RAD RIGHT ABDOMINAL PAIN [id number] 08/23/2015 10:02:00 016 10:16:00 DIS Outpatient MURTAZA VASQUEZ DO [facility] SLEEP OBSERVED APNEA, SNORING , CHOKING IN SLEEP, EDS [id number] 08/09/2015 16:53:00 016 23:59:59 CLS Outpatient LAURENCE NATY [facility] RAD FELL ON LEFT KN EE PAIN FELL TWICE [id number] 06/27/2015 14:58:00 016 23:59:59 CLS Outpatient LAURENCE VELÁSQUEZNATY [facility] RAD DIARRHEA, ABDOM AL PAIN [id number] 03/15/2015 11:55:00 015 23:59:59 CLS Outpatient JULIO CESAR KENT FACC, SERGIO FACP CC DS [facility] CARD CARDIOMYOPATHY,HLP,MR,DOWN SYNDROME [id number] 01/04/2015 07:52:00 015 23:59:59 CLS Outpatient LAURENCE VELÁSQUEZ NATY [place] [facility] RAD PRE OP [id number] 11/12/2014 01:40:00 015 05:36:00 DIS Emergency STEPHEN KENT, SUNSHINE Merritt [facility] ER FALL-HEAD INJUR Y,BLEEDING FROM MOUTH BACK OF HEA [id number] 10/02/2013 11:33:00 014 15:30:00 DIS Outpatient MARY PURDY MD [facility] SDC ABDOMINAL WALL ABSCESS [id number] 10/01/2013 15:09:00 014 23:59:59 CLS Outpatient MARY PURDY MD [facility] PREOP ABDOMINAL WALL ABSCESS [id number] 02/05/2012 20:07:00 Document Registration
== END 2019-07-13 15:10 | disposition short-term general hospital (02) ==
LOC: EDUNIT# 08:18 → ER 08:19
DX: R55 Syncope and collapse (principal); R29.818 Other symptoms and signs involving the nervous system; N17.9 Acute kidney failure, unspecified; N39.0 Urinary tract infection, site not specified; Z77.22 Contact with and (suspected) exposure to environmental tobacco smoke (acute) (chronic); Z82.49 Family history of ischemic heart disease and other diseases of the circulatory system
CPT/HCPCS: 36415; 70450; 71045; 72125; 80053; 81000; 83880; 84484; 85025; 87077; 87088; 87186; 93005